=== PATIENT | female | born 1980 | race Caucasian/White ===

== ENCOUNTER 2017-01-17 14:32 | Emergency (ER) | payer MEDICAID ==
[2017-01-17 14:45] VITALS: BP 126/90
--- NOTE | 2017-01-17 14:47 | ER Document Report ---
ED General - General Chief Complaint: Finger Injury Stated Complaint: RIGHT HAND PAIN Mode of Arrival: Ambulatory Information source: Patient Notes: 36-year-old female presents with complaints of left hand fifth digit pain. Patient notes her nailbed ripped off a few days prior and has not been red and painful. Patient denies any fevers or chills nausea vomiting or diarrhea TRAVEL OUTSIDE OF THE [place] IN LAST 30 DAYS: No - HPI Onset: Last week Onset/Duration: Persistent Quality of pain: Achy Severity: Mild Pain Level: 1 Associated symptoms: Other Exacerbated by: Denies Relieved by: Denies Similar symptoms previously: No Recently seen / treated by doctor: No - Related Data Allergies/Adverse Reactions: haloperidol [From Haldol] Allergy (Unknown, Verified 07/24/11 13:39) haloperidol lactate [From Haldol] Allergy (Unknown, Verified 07/24/11 13:39) ibuprofen [Ibuprofen] Allergy (Unknown, Verified 07/24/11 13:39) paliperidone [From Invega] Allergy (Unknown, Verified 07/24/11 13:39) Past Medical History - Social History Smoking Status: Never Smoker Cigarette use (# per day): No Chew tobacco use (# tins/day): No Smoking Education Provided: No Family History: Reviewed & Not Pertinent Neurological Medical History: Reports: Hx Seizures Musculoskeltal Medical History: Reports Hx Arthritis Psychiatric Medical History: Reports: Hx Anxiety, Hx Bipolar Disorder Past Surgical History: Reports: Hx Section, Hx Cholecystectomy, Hx Tubal Ligation - Immunizations Hx Diphtheria, Pertussis, Tetanus Vaccination: No Review of Systems - Review of Systems Notes: REVIEW OF SYSTEMS: CONSTITUTIONAL : Denies fever, chills, or sweats. Denies recent illness. EENT: Denies eye, ear, throat, or mouth pain or symptoms. Denies nasal or sinus congestion or discharge. Denies throat, tongue, or mouth swelling or difficulty swallowing. CARDIOVASCULAR: Denies chest pain. Denies palpitations or racing or irregular heart beat. Denies ankle edema. RESPIRATORY: Denies cough, cold, or chest congestion. Denies shortness of breath, difficulty breathing, or wheezing. GASTROINTESTINAL: Denies abdominal pain or distention. Denies nausea, vomiting , or diarrhea. Denies blood in vomitus, stools, or per rectum. Denies black, tarry stools. Denies constipation. GENITOURINARY: Denies difficulty urinating, painful urination, burning, frequency, blood in urine, or discharge. FEMALE GENITOURINARY: Denies vaginal bleeding, heavy or abnormal periods, irregular periods. Denies vaginal discharge or odor. MUSCULOSKELETAL: Left hand fifth digit pain SKIN: Denies rash, lesions or sores. HEMATOLOGIC : Denies easy bruising or bleeding. LYMPHATIC: Denies swollen, enlarged glands. NEUROLOGICAL: Denies confusion or altered mental status. Denies passing out or loss of consciousness. Denies dizziness or lightheadedness. Denies headache. Denies weakness or paralysis or loss of use of either side. Denies problems with gait or speech. Denies sensory loss, numbness, or tingling. Denies seizures. PSYCHIATRIC: Denies anxiety or stress. Denies depression, suicidal ideation, or homicidal ideation. ALL OTHER SYSTEMS REVIEWED AND NEGATIVE. Dictation was performed using [employer] voice recognition software PHYSICAL EXAMINATION: GENERAL: Well-appearing, well-nourished and in no acute distress. HEAD: Atraumatic, normocephalic. EYES: Pupils equal round and reactive to light, extraocular movements intact, conjunctiva are normal. ENT: Nares patent, oropharynx clear without exudates. Moist mucous membranes. NECK: Normal range of motion, supple without lymphadenopathy LUNGS: Breath sounds clear to auscultation bilaterally and equal. No wheezes rales or rhonchi. HEART: Regular rate and rhythm without murmurs ABDOMEN: Soft, nontender, nondistended abdomen. No guarding, no rebound. No masses appreciated. Female : deferred Musculoskeletal: Normal range of motion, no pitting or edema. No cyanosis. NEUROLOGICAL: Cranial nerves grossly intact. Normal speech, normal gait. Normal sensory, motor exams PSYCH: Normal mood, normal affect. SKIN: Nail missing from the left hand, mild erythema at the cuticle no pus drained small area of cellulitis noted Course - Re-evaluation Re-evalutation: 01/17/17 14:45 Small cellulitic component noted, patient otherwise well-appearing no distress, she'll be started on antibiotics and is stable for discharge After performing a Medical Screening Examination, I estimate there is LOW risk for OPEN FRACTURE, COMPARTMENT SYNDROME, TENDON RUPTURE, ACUTE NEUROVASCULAR INJURY, or RETAINED FOREIGN BODY, thus I consider the discharge disposition reasonable. Also, there is no evidence or peritonitis, sepsis, or toxicity. I have reevaluated this patient multiple times and no significant life threatening changes are noted. The patient and I have discussed the diagnosis and risks, and we agree with discharging home with close follow-up with the understanding that symptoms and presentations can change. We also discussed returning to the Emergency Department immediately if new or worsening symptoms occur. We have discussed the symptoms which are most concerning (e.g., changing or worsening pain, fever, numbness, weakness, cool or painful digits) that necessitate immediate return. Discharge - Discharge Clinical Impression: Cellulitis, finger Qualifiers: Laterality: left Qualified Code(s): L03.012 - Cellulitis of left finger Condition: Stable Disposition: HOME, SELF-CARE Instructions: Cellulitis ([facility]) Additional Instructions: Follow up with your physician tomorrow for further care or return to the ED IMMEDIATELY if symptoms worsen or new concerns occur. If you cannot afford to follow up with your primary care physician a list of low cost clinics have been provided at the end of your discharge papers as well. Prescriptions: Hydrocodone/Acetaminophen [[place] 5-325 mg Tablet] 1 tab PO Q6 #8 tablet Sulfamethoxazole/Trimethoprim [Bactrim Ds Tablet] 2 each PO BID #40 tablet
== END 2017-01-17 14:55 | disposition home or self-care (01) ==
LOC: ER 14:32
DX: L03.012 Cellulitis of left finger (principal); M79.641 Pain in right hand; X58.XXXA Exposure to other specified factors, initial encounter
CPT/HCPCS: 99283

== ENCOUNTER 2017-06-10 20:24 | Emergency (ER) | payer MEDICAID ==
[2017-06-10 20:38] VITALS: BP 134/78
--- NOTE | 2017-06-10 20:50 | ER Document Report ---
ED Medical Screen (RME) - General Chief Complaint: Probable Seizure Stated Complaint: POSSIBLE SEIZURE Time Seen by Provider: 06/10/17 20:48 Mode of Arrival: Wheelchair Information source: Patient TRAVEL OUTSIDE OF THE [place] IN LAST 30 DAYS: No - HPI Patient complains to provider of: Seizures, low back pain Notes: 06/10/17 20:49 Patient is a 36-year-old female presenting to the emergency room complaining of having 3 seizures over the past 3 days, has a history of seizures previously, reports that she sees Dr. Christy the neurologist for this, and that she recently moved from the [facility] and is unable to find her Klonopin and/ or Ativan which she typically takes for her seizures, she is also complaining of some pain and swelling on the right labia consistent with a Bartholin's gland abscess which she has had in the past, patient reports being allergic to all NSAIDs which cause tongue swelling and InVega which causes her eyes to freeze up - Related Data Allergies/Adverse Reactions: haloperidol [From Haldol] Allergy (Unknown, Verified 06/10/17 20:34) haloperidol lactate [From Haldol] Allergy (Unknown, Verified 06/10/17 20:34) ibuprofen [Ibuprofen] Allergy (Unknown, Verified 06/10/17 20:34) paliperidone [From Invega] Allergy (Unknown, Verified 06/10/17 20:34) Past Medical History Neurological Medical History: Reports: Hx Seizures Renal/ Medical History: Denies: Hx Peritoneal Dialysis Musculoskeltal Medical History: Reports Hx Arthritis Psychiatric Medical History: Reports: Hx Anxiety, Hx Bipolar Disorder Past Surgical History: Reports: Hx Section, Hx Cholecystectomy, Hx Tubal Ligation - Immunizations Hx Diphtheria, Pertussis, Tetanus Vaccination: No Physical Exam - Vital signs Vitals: Temp Pulse Resp BP Pulse Ox 99.1 F 97 14 134/78 H 94 06/10/17 20:35 06/10/17 20:35 06/10/17 20:35 06/10/17 20:35 06/10/17 20:35 Course - Vital Signs Vital signs: Temp Pulse Resp BP Pulse Ox 99.1 F 97 14 134/78 H 94 06/10/17 20:35 06/10/17 20:35 06/10/17 20:35 06/10/17 20:35 06/10/17 20:35
--- NOTE | 2017-06-10 22:47 | ER Document Report ---
ED General - General Chief Complaint: Probable Seizure Stated Complaint: POSSIBLE SEIZURE Time Seen by Provider: 06/10/17 20:48 Mode of Arrival: Wheelchair TRAVEL OUTSIDE OF THE [place] IN LAST 30 DAYS: No - HPI Notes: 36-year-old female presents with a multitude of complaints. Her chief complaint to me is back pain. She states he had a seizure and remembers falling landing on her buttocks and now has pain in her left and right lower back and buttock region. She has Flexeril but states that does not help and the only thing that helps his Soma. She also is requesting pain medication. On review of systems she has multiple other complaints which include a Bartholin 's cyst on her right labia she thinks. She has had prior marsupialization. She notes no drainage. No fever. Pain is worse with movement. She is currently on no pain medications she states. No fever. After exam I note some small little areas of folliculitis with minimal surrounding erythema. She states that these have been present off and on for quite some time. She sees Dr. Sanchez is a primary care physician. She also reports she does have seizures and is not worried about that though she has had 3 fairly recently. She states she usually takes Klonopin or Ativan for it but is not worried as she is on Neurontin also for this. She has been out of the Klonopin and Ativan for a while as well. - Related Data Allergies/Adverse Reactions: haloperidol [From Haldol] Allergy (Unknown, Verified 06/10/17 20:34) haloperidol lactate [From Haldol] Allergy (Unknown, Verified 06/10/17 20:34) ibuprofen [Ibuprofen] Allergy (Unknown, Verified 06/10/17 20:34) paliperidone [From Invega] Allergy (Unknown, Verified 06/10/17 20:34) Past Medical History - General Information source: Patient - Social History Smoking Status: Current Every Day Smoker Family History: Reviewed & Not Pertinent Neurological Medical History: Reports: Hx Seizures Renal/ Medical History: Denies: Hx Peritoneal Dialysis Musculoskeltal Medical History: Reports Hx Arthritis Psychiatric Medical History: Reports: Hx Anxiety, Hx Bipolar Disorder Past Surgical History: Reports: Hx Section, Hx Cholecystectomy, Hx Tubal Ligation - Immunizations Hx Diphtheria, Pertussis, Tetanus Vaccination: No Review of Systems - Review of Systems -: Yes All other systems reviewed and negative Physical Exam - Vital signs Vitals: Temp Pulse Resp BP Pulse Ox 99.1 F 97 14 134/78 H 94 06/10/17 20:35 06/10/17 20:35 06/10/17 20:35 06/10/17 20:35 06/10/17 20:35 - Notes Notes: GENERAL: VS as per nursing doc. Well-appearing, appears somewhat sedated and under the influence, well-nourished and in no acute distress. HEAD: Atraumatic, normocephalic. EYES: Pupils equal round and reactive to light, extraocular movements intact, sclera anicteric, no conjunctival injection or discharge. ENT: Nares patent, oropharynx clear without exudates, moist mucous membranes. NECK: Normal range of motion, supple without lymphadenopathy. LUNGS: Breath sounds clear to auscultation bilaterally and equal. Good movement but mild wheezing HEART: Regular rate and rhythm without murmurs. ABDOMEN: Soft, non-tender. BACK: Mild tenderness to palpation in the lower lumbar region paraspinal musculature extending to the SI region bilaterally. : Exam done with PCPAgustina. There is no palpable Bartholin's abscess. There is some tenderness but no drainage noted. EXTREMITIES: Normal range of motion, no calf tenderness, no edema. NEUROLOGICAL: Patient has normal distal strength and sensation, gait is intact. No saddle anesthesia. PSYCH: No evidence of delusions hallucinations suicidal homicidal ideation.. SKIN: Warm, dry, normal turgor, patient has some small furuncles that are scattered over her upper legs. There are no abscesses that are of drainable size. Course - Re-evaluation Re-evalutation: 06/10/17 22:47 Patient's main concern was that I would not prescribe her Soma. I told her I was not comfortable with this medication due to its addictive properties. As this was related to a fall, I recommended labs as well as x-ray. She refused this stating it is just muscle spasm. She understands risks of occult injury. I told her I would prescribe her Zanaflex as apparently all other muscle relaxants do not help. I did specifically ask if she had any addiction issues or if she had any pain medication that she was currently on. She states no. I reviewed the [place] database and it showed she had Suboxone picked up both the sixth seventh and 14th of this month. She states it must have been her that did this. I told her this was an appropriate. Again I was not comfortable providing controlled substances that she was requesting. She will be discharged to follow-up with Dr. Sanchez her primary care doctor. - Vital Signs Vital signs: Temp Pulse Resp BP Pulse Ox 99.1 F 97 14 134/78 H 94 06/10/17 20:35 06/10/17 20:35 06/10/17 20:35 06/10/17 20:35 06/10/17 20:35 Discharge - Discharge Clinical Impression: Back pain, Labial pain, Seizure Condition: Good Disposition: HOME, SELF-CARE Additional Instructions: Please follow-up with your primary care physician. Please instruct her partner that it is an appropriate for her to be picking up your Suboxone and that you are not using it as you told me. Return for emergency or concern. Prescriptions: Tizanidine HCl [Zanaflex] 4 mg PO Q8HP PRN #10 capsule PRN Reason: For Back Pain Sulfamethoxazole/Trimethoprim [Bactrim Ds Tablet] 1 each PO BID #14 tablet
== END 2017-06-10 23:16 | disposition home or self-care (01) ==
LOC: ER 20:24
DX: R56.9 Unspecified convulsions (principal); R10.2 Pelvic and perineal pain; M54.9 Dorsalgia, unspecified; Z79.899 Other long term (current) drug therapy; F17.200 Nicotine dependence, unspecified, uncomplicated
CPT/HCPCS: 99283

== ENCOUNTER 2017-09-11 11:27 | Emergency (ER) | payer MEDICAID ==
[2017-09-11 11:50] VITALS: BP 169/112
--- NOTE | 2017-09-11 11:52 | ER Document Report ---
ED Medical Screen (RME) - General Chief Complaint: Vaginal Pain Stated Complaint: ABCESS Time Seen by Provider: 09/11/17 11:50 Notes: 36-year-old female patient complains of one-week history of painful Bartholin's cyst, and has had URI symptoms for 4 days with cough and hoarse voice. I have greeted and performed a rapid initial assessment of this patient. A comprehensive ED assessment and evaluation of the patient, analysis of test results and completion of the medical decision making process will be conducted by additional ED providers. TRAVEL OUTSIDE OF THE [place] IN LAST 30 DAYS: No - Related Data Allergies/Adverse Reactions: haloperidol [From Haldol] Allergy (Unknown, Verified 09/11/17 11:28) haloperidol lactate [From Haldol] Allergy (Unknown, Verified 09/11/17 11:28) ibuprofen [Ibuprofen] Allergy (Unknown, Verified 09/11/17 11:28) paliperidone [From Invega] Allergy (Unknown, Verified 09/11/17 11:28) Past Medical History Neurological Medical History: Reports: Hx Seizures Renal/ Medical History: Denies: Hx Peritoneal Dialysis Musculoskeltal Medical History: Reports Hx Arthritis Psychiatric Medical History: Reports: Hx Anxiety, Hx Bipolar Disorder Past Surgical History: Reports: Hx Section, Hx Cholecystectomy, Hx Tubal Ligation - Immunizations Hx Diphtheria, Pertussis, Tetanus Vaccination: No Physical Exam - Vital signs Vitals: Temp Pulse Resp BP Pulse Ox 99.2 F 103 H 20 169/112 H 92 09/11/17 11:35 09/11/17 11:35 09/11/17 11:35 09/11/17 11:35 09/11/17 11:35 Course - Vital Signs Vital signs: Temp Pulse Resp BP Pulse Ox 99.2 F 103 H 20 169/112 H 92 09/11/17 11:35 09/11/17 11:35 09/11/17 11:35 09/11/17 11:35 09/11/17 11:35
[2017-09-11] MEDS ORDERED: ALBUTEROL SULFATE 0.083% NEB 2.5 MG/3 ML AMPUL NEB ONE (13:21)
--- NOTE | 2017-09-11 13:21 | ER Document Report ---
ED General - General Chief Complaint: Vaginal Pain Stated Complaint: ABCESS Time Seen by Provider: 09/11/17 11:50 Notes: Patient is a 36-year-old female presents emergency department complaining of Bartholin's cyst within her right labia. Patient states she has been having pressure and discomfort there for about a week and a half without any active draining. States she has been having issues with this for about 2 years. She has had been on the left and had previous surgery in this area. She denies any fever. Otherwise she does admit to nonproductive cough without shortness of breath for the past 4 days. She denies any nasal drainage, sinus congestion. TRAVEL OUTSIDE OF THE [place] IN LAST 30 DAYS: No - Related Data Allergies/Adverse Reactions: haloperidol [From Haldol] Allergy (Unknown, Verified 09/11/17 11:28) haloperidol lactate [From Haldol] Allergy (Unknown, Verified 09/11/17 11:28) ibuprofen [Ibuprofen] Allergy (Unknown, Verified 09/11/17 11:28) paliperidone [From Invega] Allergy (Unknown, Verified 09/11/17 11:28) Past Medical History - Social History Smoking Status: Current Every Day Smoker Frequency of alcohol use: None Drug Abuse: None Family History: Reviewed & Not Pertinent Patient has suicidal ideation: No Patient has homicidal ideation: No Neurological Medical History: Reports: Hx Seizures Renal/ Medical History: Denies: Hx Peritoneal Dialysis Musculoskeltal Medical History: Reports Hx Arthritis Psychiatric Medical History: Reports: Hx Anxiety, Hx Bipolar Disorder Past Surgical History: Reports: Hx Section, Hx Cholecystectomy, Hx Tubal Ligation - Immunizations Hx Diphtheria, Pertussis, Tetanus Vaccination: No Review of Systems - Review of Systems Constitutional: No symptoms reported Cardiovascular: No symptoms reported Respiratory: See HPI Gastrointestinal: No symptoms reported Female Genitourinary: See HPI -: Yes All other systems reviewed and negative Physical Exam - Vital signs Vitals: Temp Pulse Resp BP Pulse Ox 99.2 F 103 H 20 169/112 H 92 09/11/17 11:35 09/11/17 11:35 09/11/17 11:35 09/11/17 11:35 09/11/17 11:35 - Notes Notes: PHYSICAL EXAM GENERAL: Alert, interacts well. HEAD: Normocephalic, atraumatic. EYES: Pupils equal, round, and reactive to light. Extraocular movements intact. ENT: Oral mucosa moist, tongue midline. NECK: Full range of motion. Supple. Trachea midline. LUNGS: Clear to auscultation bilaterally, no wheezes, rales, or rhonchi. No respiratory distress. HEART: Regular rate and rhythm. No murmurs, gallops, or rubs. ABDOMEN: Soft, nondistended, nontender. No guarding, rebound, or rigidity.. Bowel sounds present in all 4 quadrants. My pelvic exam Pelvic: Patient points to the lower right portion of the external genitalia, below or at the lower labia on the right as to where it's very painful and she feels the cyst is located. No eveidnce of current drainage, erythema , induration or cellulitis. Palpation to the area without fluctuance or an area that I think it's reasonable to attempt an I & D Rectal: nontender, sphincter intact. no stool within the rectal vault. Nontender to digital exam EXTREMITIES: Moves all 4 extremities spontaneously. No edema, radial and dorsalis pedis pulses 2/4 bilaterally. No cyanosis. NEUROLOGICAL: Alert and oriented x4. Normal speech. PSYCH: Normal affect, normal mood. SKIN: Warm, dry, normal turgor. No rashes or lesions noted. Course - Re-evaluation Re-evalutation: 09/11/17 13:00 Patient is a 36-year-old female is hemodynamically stable, no acute distress and afebrile. Presentation is not consistent with a Bartholin's cyst inflammation, abscess at this time. Patient states that she was previously evaluated here for this over a year ago by Dr. Chambers, she had significant relief with Keflex at that time. Will continue this treatment at this time patient had relief. Educated her on utilizing warm soaks in the bathtub and to follow-up with [facility]. Regarding her cough. Patient states that she does have a nebulizer and inhaler at home. Otherwise did not have any concerns for pneumonia given patient's not short of breath, no productive cough, benign physical exam findings. Patient is stable for discharge. - Vital Signs Vital signs: Temp Pulse Resp BP Pulse Ox 99.2 F 103 H 20 169/112 H 95 09/11/17 11:35 09/11/17 11:35 09/11/17 11:35 09/11/17 11:35 09/11/17 11:54 Discharge - Discharge Clinical Impression: Vaginal pain, Cough Condition: Good Disposition: HOME, SELF-CARE Additional Instructions: Bartholin Gland Cyst or Abcess The Bartholin glands are located on each side of the entrance to the vagina. These glands secrete lubricating fluid. If a gland becomes plugged, it can create a "Bartholin's cyst." This creates a large bulge on one side of the labia. A cyst is usually not very painful. If a Bartholin's cyst or gland becomes infected, it creates an abscess. This is a painful collection of pus. One side of the labia becomes swollen, red , and painful. It will be very painful to walk or sit. When a Bartholin's cyst causes mild symptoms, it can sometimes be treated with sitz baths and antibiotics. A painful abscess usually needs to be drained ( lanced). If there are signs of infection in the tissues around the abscess, we prescribe antibiotics. Antibiotics are not always necessary for an abscess that' s been drained. If packing has been placed, it's important to follow up as scheduled for removal or replacement of the packing. Return if you have increasing fever, body aches, lightheadedness, or if the swelling and pain is getting worse. CEPHALEXIN: The antibiotic you've been prescribed is a member of the cephalosporin class. This type of antibiotic covers a wide variety of infections, including those of the skin, lungs, and urinary tract. It's useful for staph infections. This antibiotic is slightly similar to the penicillin family. In rare cases , a person who is allergic to penicillin will also be allergic to this medication. If you have had a severe allergic reaction to penicillin, and have not taken this antibiotic since that time, notify your doctor. Antibiotics which cover many germs ("broad spectrum" antibiotics) are more likely to cause diarrhea or "yeast" infections. Women prone to vaginal yeast problems may suffer an attack after taking this antibiotic. In infants, oral thrush (white spots "stuck" on the cheek) or yeast diaper rash may result. See your doctor if these problems occur. Call at once if you develop itching, hives , shortness of breath, or lightheadedness. FOLLOW-UP CARE: Most simple abscesses will not require a follow up visit. If you had packing placed in the abscess, remove it as instructed by the physician. If you have been referred to a physician for follow-up care, call the physicians office for an appointment as you were instructed or within the next two days. If you experience worsening or a significant change in your symptoms, return to the Emergency Department at any time for re-evaluation. I recommend you follow-up with a local [employer] physician to see about having surgery to remove the cyst so it won't form future abscesses. [facility] is the only [facility] group in [facility] at this time and I have provided their contact information elsewhere in your discharge instructions. Prescriptions: Acetaminophen with Codeine [Acetaminophen-Cod #3 Tablet] 1 each PO BID #6 tablet Cephalexin Monohydrate [Keflex 500 mg Capsule] 500 mg PO Q6H 5 Days capsule Referrals: CNOSTANZA STONE MD [Primary Care Provider] - Follow up as needed [facility] [Provider Group] - Follow up in 3-5 days
[2017-09-11] MEDS ORDERED: CEPHALEXIN 500 MG CAPSULE PO ONE (13:44)
== END 2017-09-11 14:11 | disposition home or self-care (01) ==
LOC: ER 11:27
DX: R10.2 Pelvic and perineal pain (principal); R05 Cough; F17.200 Nicotine dependence, unspecified, uncomplicated
CPT/HCPCS: 94640; 99283

== ENCOUNTER 2018-01-15 22:02 | Emergency (ER) | payer MEDICAID ==
--- NOTE | 2018-01-16 00:07 | ER Document Report ---
HPI - HPI Pain Level: 4 Context: Patient is a 37-year-old female presents emergency room with a chief complaint of anxiety. Patient states that she has a history of anxiety and she has been taking Lexapro for about 5 years but recently has been having more acute anxiety attacks since she went to some new is in her family. She admits to anxiety without suicidal or homicidal ideations. Patient states that she has not talked about this with her primary care provider. She admits to shortness of breath associated with these episodes. - REPRODUCTIVE Reproductive: DENIES: : Past Medical History - Social History Smoking Status: Current Every Day Smoker Family History: Reviewed & Not Pertinent Neurological Medical History: Reports: Hx Seizures Renal/ Medical History: Denies: Hx Peritoneal Dialysis Musculoskeltal Medical History: Reports Hx Arthritis Psychiatric Medical History: Reports: Hx Anxiety, Hx Bipolar Disorder Past Surgical History: Reports: Hx Section, Hx Cholecystectomy, Hx Tubal Ligation - Immunizations Hx Diphtheria, Pertussis, Tetanus Vaccination: No Vertical Provider Document - CONSTITUTIONAL Agree With Documented VS: Yes Notes: PHYSICAL EXAM GENERAL: Alert, interacts well. HEAD: Normocephalic, atraumatic. EYES: Pupils equal, round, and reactive to light. Extraocular movements intact. ENT: Oral mucosa moist, tongue midline. NECK: Full range of motion. Supple. Trachea midline. LUNGS: Clear to auscultation bilaterally, no wheezes, rales, or rhonchi. No respiratory distress. HEART: Regular rate and rhythm. No murmurs, gallops, or rubs. ABDOMEN: Soft, nondistended, nontender. No guarding, rebound, or rigidity.. Bowel sounds present in all 4 quadrants. EXTREMITIES: Moves all 4 extremities spontaneously. No edema, radial and dorsalis pedis pulses 2/4 bilaterally. No cyanosis. NEUROLOGICAL: Alert and oriented x4. Normal speech. PSYCH: Normal affect, normal mood. SKIN: Warm, dry, normal turgor. No rashes or lesions noted. - INFECTION CONTROL TRAVEL OUTSIDE OF THE [place] IN LAST 30 DAYS: No Course - Re-evaluation Re-evalutation: 01/16/18 01:00 Patient is a 37-year-old female who is hemodynamically stable, no acute distress and afebrile. EKG ordered in triage without any evidence of cardiac arrhythmia. Patient on exam is able speak in full sentences and normal affect. Discussed with her to follow-up with her primary care office regarding her symptoms and discussed strict return precautions to the ER. At this time patient is not a IVC criteria. - Vital Signs Vital signs: Temp Pulse Resp BP Pulse Ox 98.2 F 81 20 135/77 H 95 01/15/18 22:42 01/15/18 22:42 01/15/18 22:42 01/15/18 22:42 01/15/18 22:42 - Diagnostic Test Radiology reviewed: Image reviewed, Reports reviewed Discharge - Discharge Clinical Impression: Anxiety Condition: Good Disposition: HOME, SELF-CARE Instructions: Anxiety (OM) Prescriptions: Lorazepam [Ativan 1 mg Tablet] 1 mg PO Q4 PRN #15 tab PRN Reason: Referrals: [facility] [Provider Group] - Follow up in 1 week
--- NOTE | 2018-01-16 00:26 | EKG REPORT ---
SEVERITY:- NORMAL ECG - SINUS RHYTHM : Confirmed by: Karen Villanueva 16-Jan-2018 00:26:06
[2018-01-16] MEDS: LORAZEPAM 1 MG TABLET PO ONE (00:37)
--- NOTE | 2018-01-16 01:08 | RADIOLOGY REPORT (SQ) ---
EXAM DESCRIPTION: CHEST 2 VIEWS CLINICAL HISTORY: chest pain, anxiety COMPARISON: None. FINDINGS: Frontal and lateral views of the chest. The cardiomediastinal silhouette has normal size and contour. No consolidation, pneumothorax, or pleural effusion. No displaced rib fractures identified. Upper abdominal soft tissues are unremarkable. IMPRESSION: 1. No acute pulmonary process identified.
[2018-01-16 01:45] VITALS: BP 124/74
== END 2018-01-16 01:45 | disposition home or self-care (01) ==
LOC: ER 22:02
DX: F41.9 Anxiety disorder, unspecified (principal); Z79.899 Other long term (current) drug therapy; R06.02 Shortness of breath; F17.200 Nicotine dependence, unspecified, uncomplicated
CPT/HCPCS: 71046; 93005; 93010; 99283

== ENCOUNTER 2018-05-18 16:08 | Emergency (ER) | payer MEDICAID, OTHER ==
--- NOTE | 2018-05-18 16:31 | ER Document Report ---
ED Medical Screen (RME) - General Chief Complaint: Psych Problem Stated Complaint: PSYCH EVAL Time Seen by Provider: 05/18/18 16:27 TRAVEL OUTSIDE OF THE [place] IN LAST 30 DAYS: No - HPI Notes: 05/18/18 16:30 Increased anxiety and depression - Related Data Allergies/Adverse Reactions: haloperidol [From Haldol] Allergy (Unknown, Verified 05/18/18 16:09) haloperidol lactate [From Haldol] Allergy (Unknown, Verified 05/18/18 16:09) ibuprofen [Ibuprofen] Allergy (Unknown, Verified 05/18/18 16:09) paliperidone [From Invega] Allergy (Unknown, Verified 05/18/18 16:09) hydroxyzine [From Vistaril] Allergy (Verified 05/18/18 16:09) Past Medical History Neurological Medical History: Reports: Hx Seizures Renal/ Medical History: Denies: Hx Peritoneal Dialysis Musculoskeltal Medical History: Reports Hx Arthritis Psychiatric Medical History: Reports: Hx Anxiety, Hx Bipolar Disorder Past Surgical History: Reports: Hx Section, Hx Cholecystectomy, Hx Tubal Ligation - Immunizations Hx Diphtheria, Pertussis, Tetanus Vaccination: No Review of Systems - Review of Systems Neurological/Psychological: Depression, Anxiety Physical Exam - Vital signs Vitals: Temp Pulse Resp BP Pulse Ox 98.8 F 91 24 H 137/83 H 95 05/18/18 16:14 05/18/18 16:14 05/18/18 16:14 05/18/18 16:14 05/18/18 16:14 - Respiratory Respiratory status: No respiratory distress Chest status: Nontender Breath sounds: Normal Chest palpation: Normal - Cardiovascular Rhythm: Regular Heart sounds: Normal auscultation Course - Vital Signs Vital signs: Temp Pulse Resp BP Pulse Ox 98.8 F 91 24 H 137/83 H 95 05/18/18 16:14 05/18/18 16:14 05/18/18 16:14 05/18/18 16:14 05/18/18 16:14
[2018-05-18 17:26] LABS: ABSOLUTE BASOPHILS # (AUTO) 0.1 10^3/uL (0.0-0.2); ABSOLUTE EOSINOPHILS # (AUTO) 0.5 10^3/uL (0.0-0.6); ABSOLUTE LYMPHOCYTES (AUTO) 3.3 10^3/uL (0.5-4.7); ABSOLUTE MONOCYTES (AUTO) 1.1 10^3/uL (0.1-1.4); ABSOLUTE NEUT (AUTO) 8.1 10^3/uL (1.7-8.2); BASOPHILS % (AUTO) 0.9 % (0-2); EOSINOPHILS % (AUTO) 3.7 % (0-6); HEMATOCRIT 42.3 % (36.0-47.0); HEMOGLOBIN 14.1 g/dL (12.0-15.5); LYMPHOCYTES % (AUTO) 25.5 % (13-45); MEAN CORPUSCULAR HEMOGLOBIN 27.6 pg (27.0-33.4); MEAN CORPUSCULAR HGB CONC 33.3 g/dL (32.0-36.0); MEAN CORPUSCULAR VOLUME 83 fl (80-97); PLATELET COUNT 183 10^3/uL (150-450); RED BLOOD COUNT 5.12 10^6/uL (3.72-5.28); RED CELL DISTRIBUTION WIDTH 15.6 % (11.5-14.0); SEGMENTED NEUTROPHILS % (AUTO) 61.9 % (42-78); TOTAL CELLS COUNTED % (AUTO) 100 %; WHITE BLOOD COUNT 13.1 10^3/uL (4.0-10.5)
[2018-05-18 17:54] LABS: ALANINE AMINOTRANSFERASE 21 U/L (9-52); ALBUMIN 3.9 g/dL (3.5-5.0); ALKALINE PHOSPHATASE 89 U/L (38-126); ANION GAP 12 (5-19); ASPARTATE AMINO TRANSFERASE 21 U/L (14-36); BILIRUBIN,DIRECT 0.3 mg/dL (0.0-0.4); BILIRUBIN,TOTAL 0.4 mg/dL (0.2-1.3); BLOOD UREA NITROGEN 10 mg/dL (7-20); CALCIUM 9.6 mg/dL (8.4-10.2); CARBON DIOXIDE 28 mmol/L (22-30); CHLORIDE 101 mmol/L (98-107); GLUCOSE 147 mg/dL (75-110); POTASSIUM 4.3 mmol/L (3.6-5.0); SODIUM 140.5 mmol/L (137-145); TOTAL PROTEIN 7.4 g/dL (6.3-8.2)
[2018-05-18 18:01] LABS: APPEARANCE,URINE CLEAR; BILIRUBIN,URINE NEGATIVE (NEGATIVE); COLOR,URINE YELLOW; GLUCOSE, URINE NEGATIVE (NEGATIVE); KETONES,URINE NEGATIVE (NEGATIVE); LEUKOCYTE ESTERASE,URINE NEGATIVE (NEGATIVE); NITRITE,URINE NEGATIVE (NEGATIVE); PROTEIN,URINE NEGATIVE (NEGATIVE); URINE SPECIFIC GRAVITY 1.008; UROBILINOGEN,URINE NEGATIVE mg/dL (<2.0)
[2018-05-18 18:11] LABS: ACETAMINOPHEN < 10 ug/mL (10-30); ALCOHOL < 10 mg/dL (NONE DETECTED); SALICYLATE < 1.0 mg/dL (2.0-20.0)
--- NOTE | 2018-05-18 18:35 | ER Document Report ---
ED General - General Chief Complaint: Psych Problem Stated Complaint: PSYCH EVAL Time Seen by Provider: 05/18/18 16:27 Mode of Arrival: Ambulatory Information source: Patient Notes: This is a 37-year-old female with a history of depression and anxiety who presents to the emergency room with concerns for "having a nervous breakdown". Patient's sister just . She did try and get into the outpatient psych clinic at [facility] and was turned away she feels like she is root losing control. TRAVEL OUTSIDE OF THE [place] IN LAST 30 DAYS: No - HPI Onset: Last week Onset/Duration: Gradual Quality of pain: No pain Severity: None Associated symptoms: denies: Chest pain, Fever, Shortness of breath Exacerbated by: Denies Relieved by: Denies Similar symptoms previously: Yes Recently seen / treated by doctor: No - Related Data Allergies/Adverse Reactions: haloperidol [From Haldol] Allergy (Unknown, Verified 05/18/18 16:09) haloperidol lactate [From Haldol] Allergy (Unknown, Verified 05/18/18 16:09) ibuprofen [Ibuprofen] Allergy (Unknown, Verified 05/18/18 16:09) paliperidone [From Invega] Allergy (Unknown, Verified 05/18/18 16:09) hydroxyzine [From Vistaril] Allergy (Verified 05/18/18 16:09) Past Medical History - General Information source: Patient - Social History Smoking Status: Current Every Day Smoker Cigarette use (# per day): Yes - Half pack per day Chew tobacco use (# tins/day): No Frequency of alcohol use: None Drug Abuse: None Lives with: Family Family History: Reviewed & Not Pertinent Patient has suicidal ideation: Yes Patient has homicidal ideation: No - Past Medical History Cardiac Medical History: Reports: None Pulmonary Medical History: Reports: None Neurological Medical History: Reports: Hx Seizures Renal/ Medical History: Denies: Hx Peritoneal Dialysis GI Medical History: Reports: None Musculoskeletal Medical History: Reports Hx Arthritis Psychiatric Medical History: Reports: Hx Anxiety, Hx Bipolar Disorder Past Surgical History: Reports: Hx Section, Hx Cholecystectomy, Hx Tubal Ligation - Immunizations Hx Diphtheria, Pertussis, Tetanus Vaccination: No Review of Systems - Review of Systems Constitutional: denies: Chills, Fever EENT: No symptoms reported Cardiovascular: No symptoms reported Respiratory: No symptoms reported Gastrointestinal: No symptoms reported Genitourinary: No symptoms reported Female Genitourinary: No symptoms reported Musculoskeletal: No symptoms reported Skin: No symptoms reported Hematologic/Lymphatic: No symptoms reported Neurological/Psychological: See HPI Physical Exam - Vital signs Vitals: Temp Pulse Resp BP Pulse Ox 98.8 F 91 24 H 137/83 H 95 05/18/18 16:14 05/18/18 16:14 05/18/18 16:14 05/18/18 16:14 05/18/18 16:14 Notes: Physical exam: GENERAL: 37-year-old female, alert and oriented 3, he does appear very anxious. HEAD: Atraumatic, normocephalic. EYES: Pupils equal round and reactive to light, extraocular movements intact, sclera anicteric, conjunctiva are normal. ENT: TMs normal, nares patent, oropharynx clear without exudates. Moist mucous membranes. NECK: Normal range of motion, supple without obvious mass or JVD. LUNGS: Breath sounds clear to auscultation bilaterally and equal. No wheezes rales or rhonchi. HEART: Regular rate and rhythm without murmurs, rubs or gallops. ABDOMEN: Soft, normoactive bowel sounds. No tenderness to palpation. No guarding, no rebound. No masses appreciated. EXTREMITIES: Normal range of motion, no pitting or edema. No clubbing or cyanosis. NEUROLOGICAL: Cranial nerves II through XII grossly intact. Normal speech, moving all extremities. PSYCH: Anxious, depressed. SKIN: Warm, Dry, normal turgor, no rashes or lesions noted. Course - Re-evaluation Re-evalutation: 05/18/18 18:35 Patient is medically stable for psychiatric disposition or discharge. - Vital Signs Vital signs: Temp Pulse Resp BP Pulse Ox 98.8 F 91 24 H 137/83 H 95 05/18/18 16:14 05/18/18 16:14 05/18/18 16:14 05/18/18 16:14 05/18/18 16:14 - Laboratory Result Diagrams: 05/18/18 17:22 05/18/18 17:22 Laboratory results interpreted by me: 05/18/18 05/18/18 05/18/18 16:58 17:22 17:22 WBC 13.1 H RDW 15.6 H Glucose 147 H Urine Blood SMALL H Salicylates < 1.0 L Acetaminophen < 10 L Discharge - Discharge Clinical Impression: Mood disorder NOS Condition: Stable Disposition: PSYCH HOSP/UNIT
[2018-05-18 19:08] LABS: URINE AMPHETAMINES SCREEN NEGATIVE; URINE BARBITURATES SCREEN NEGATIVE; URINE BENZODIAZEPINES SCREEN UNCONFIRMED POSITIVE; URINE COCAINE SCREEN NEGATIVE; URINE MARIJUANA (THC) SCREEN NEGATIVE; URINE METHADONE SCREEN NEGATIVE; URINE PHENCYCLIDINE SCREEN NEGATIVE
[2018-05-18] MEDS ORDERED: ALPRAZOLAM 0.5 MG TABLET PO ONE (19:43)
[2018-05-18] MEDS ORDERED: NICOTINE 21 MG/24 HR PATCH.TD24 TD ONE (20:23)
[2018-05-19] MEDS ORDERED: CLONIDINE HCL 0.2 MG TABLET PO ONE (00:48)
[2018-05-19] MEDS ORDERED: ALPRAZOLAM 0.5 MG TABLET PO PRN (00:58)
[2018-05-19] MEDS ORDERED: TRAZODONE HCL 50 MG TABLET PO SCH (01:00)
--- NOTE | 2018-05-19 08:56 | EKG REPORT ---
SEVERITY:- BORDERLINE ECG - SINUS RHYTHM PROBABLE LEFT ATRIAL ABNORMALITY BORDERLINE T ABNORMALITIES, ANTERIOR LEADS : Confirmed by: Karen Villanueva 19-May-2018 08:56:22
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
[2018-05-19 09:17] VITALS: BP 140/70
[2018-05-19] MEDS ORDERED: CLONIDINE HCL 0.2 MG TABLET PO SCH (10:00)
--- NOTE | 2018-05-19 10:28 | ER Document Report ---
Doctor's Note Notes: 05/19/18 10:26 Patient sleeping comfortably on stretcher, easily awakens, reports that she feels anxious and depressed secondary to the recent passing of her sister, she immediately asked me if she could have a dose of Xanax, I stated the patient that I would not be providing her with any controlled substances today, she argued that this is a medication she takes at home, I explained that unless she could provide me with a current prescription bottle showing she is on this medication I was not going to order it for her, at which point time she told me to call the pharmacy, explained that the pharmacy had been called and confirm that patient has not been on this medication in quite some time, at which point in time patient requested her belongings and her discharge paperwork, patient was given a list of resources to follow-up with on an outpatient basis, and advised to return if symptoms worsen or any additional concerns, patient acknowledges understanding and agreement with this plan Discharge - Discharge Clinical Impression: Bipolar 1 disorder, Anxiety Condition: Stable Disposition: HOME, SELF-CARE Additional Instructions: You have been evaluated by medical and behavioral health teams and have been deemed appropriate for discharge. Is recommended you follow-up with outpatient mental health services to receive Dialectical behavioral therapy (DBT). You have been provided a resource list for local mental health providers. Anxiety The physician feels that some of your health problems are being caused by anxiety. Anxiety affects your health in many ways. Anxiety alone can cause palpitations, sweats, chest pains, abdominal pains, shortness of breath, and headaches. It contributes to ulcer disease, high blood pressure, irritable bowel syndrome, and has been shown to cause flare-ups of many other diseases. Anxiety is not a simple disorder to treat. If the anxiety is due to recent life stresses, you may simply need time to "work through" the changes. If the anxiety is due to an underlying unhappiness with yourself or due to psychiatric disturbance, professional help will be needed. Your physician can refer you for further help if needed. Anti-anxiety medication is occasionally given if the stress is acute or if you are having trouble sleeping. Chronic or frequent use of these medications is not a good idea because the body becomes reliant on it, preventing you from dealing with life's normal stresses. Bipolar Disorder Bipolar disorder is also called manic-depressive disorder. Depression alternates with brain hyperactivity called micheal. Each phase lasts from several days to a few weeks. We don't know exactly what causes bipolar disorder , but it's treatable. During the "manic phase," you may feel elated and energetic. You may have racing thoughts, rapid speech, increased activity, and grandiose ideas. During this time, you may not realize how poor your judgement is. Inappropriate spending, drug abuse, excessive alcohol use, marriage problems, and irresponsible sexual behavior are common during the manic phase. During the "depressive phase," you might feel depressed, guilty, worthless , fatigued, and unable to concentrate. You might have thoughts of suicide. Good treatments are available for bipolar disorder. [place] is a classic drug for bipolar disorder, and is still often useful. If the manic phase is very mild, an antidepressant alone can be prescribed. If the manic phase is very severe, an antipsychotic medicine (such as Haldol) may be needed. The treatment must be matched to your symptoms, so it's important to work closely with your psychiatric care provider. Contact your physician, the hospital emergency center, crisis line, or your counsellor if you are losing control or having self-destructive thoughts. AT ANY TIME, IF YOUR SYMPTOMS CHANGE SIGNIFICANTLY OR WORSEN OR YOU DEVELOP NEW SYMPTOMS, RETURN TO THE EMERGENCY DEPARTMENT IMMEDIATELY FOR RE-EVALUATION. Referrals: [facility] [Outside] - Follow up in 3-5 days [facility] [Outside] - Follow up as needed
== END 2018-05-19 10:54 | disposition home or self-care (01) ==
LOC: ER 16:08
DX: F31.9 Bipolar disorder, unspecified (principal); F41.9 Anxiety disorder, unspecified; F17.210 Nicotine dependence, cigarettes, uncomplicated; Z88.8 Allergy status to other drugs, medicaments and biological substances; Z88.6 Allergy status to analgesic agent
CPT/HCPCS: 93005; 99285; 36415; 80307 ×4; 85025; 80053; 81001; 93010; J3490 ×4

== ENCOUNTER 2019-11-25 00:25 | Observation (INO) | payer OTHER ==
[2019-11-25 01:26] LABS: ABSOLUTE BASOPHILS # (AUTO) 0.1 10^3/uL (0.0-0.2); ABSOLUTE EOSINOPHILS # (AUTO) 0.2 10^3/uL (0.0-0.6); ABSOLUTE LYMPHOCYTES (AUTO) 2.7 10^3/uL (0.5-4.7); ABSOLUTE MONOCYTES (AUTO) 0.8 10^3/uL (0.1-1.4); HEMATOCRIT 43.7 % (36.0-47.0); HEMOGLOBIN 14.9 g/dL (12.0-15.5); LYMPHOCYTES % (AUTO) 22.7 % (13-45); MEAN CORPUSCULAR HGB CONC 34.1 g/dL (32.0-36.0); MEAN CORPUSCULAR VOLUME 85 fl (80-97); MONOCYTES % (AUTO) 6.8 % (3-13); PLATELET COUNT 200 10^3/uL (150-450); RED BLOOD COUNT 5.14 10^6/uL (3.72-5.28); RED CELL DISTRIBUTION WIDTH 14.6 % (11.5-14.0); SEGMENTED NEUTROPHILS % (AUTO) 67.5 % (42-78); TOTAL CELLS COUNTED % (AUTO) 100 %; WHITE BLOOD COUNT 11.8 10^3/uL (4.0-10.5)
[2019-11-25 01:44] LABS: ALBUMIN 3.8 g/dL (3.5-5.0); ALKALINE PHOSPHATASE 109 U/L (38-126); ANION GAP 6 (5-19); ASPARTATE AMINO TRANSFERASE 29 U/L (14-36); BILIRUBIN,DIRECT 0.1 mg/dL (0.0-0.4); BILIRUBIN,TOTAL 0.4 mg/dL (0.2-1.3); BLOOD UREA NITROGEN 5 mg/dL (7-20); CALCIUM 9.2 mg/dL (8.4-10.2); CARBON DIOXIDE 32 mmol/L (22-30); CHLORIDE 97 mmol/L (98-107); GLUCOSE 272 mg/dL (75-110); POTASSIUM 4.4 mmol/L (3.6-5.0)
[2019-11-25] MEDS ORDERED: ACETAMINOPHEN 325 MG TABLET PO ONE (01:58)
[2019-11-25 02:41] LABS: APPEARANCE,URINE CLEAR; BILIRUBIN,URINE NEGATIVE (NEGATIVE); COLOR,URINE STRAW; GLUCOSE, URINE NEGATIVE (NEGATIVE); KETONES,URINE NEGATIVE (NEGATIVE); LEUKOCYTE ESTERASE,URINE NEGATIVE (NEGATIVE); NITRITE,URINE NEGATIVE (NEGATIVE); PROTEIN,URINE NEGATIVE (NEGATIVE); URINE SPECIFIC GRAVITY 1.001; UROBILINOGEN,URINE NEGATIVE mg/dL (<2.0)
[2019-11-25] MEDS ORDERED: NORMAL SALINE 1000 ML 1,000 ML IV ONE (04:04)
[2019-11-25] MEDS ORDERED: DICYCLOMINE HCL 20 MG TABLET PO ONE (04:04)
[2019-11-25] MEDS ORDERED: ONDANSETRON HCL INJ/PF 4 MG/2 ML SDV IV ONE ×2 (04:04→13:45)
--- NOTE | 2019-11-25 04:21 | ER Document Report ---
ED GI/ - General Mode of Arrival: Ambulatory Information source: Patient TRAVEL OUTSIDE OF THE [place] IN LAST 30 DAYS: No - HPI Patient complains to provider of: Abdominal pain, Diarrhea, Vomiting Onset: Yesterday Timing/Duration: Worse Quality of pain: Sharp Pain Level: 5 Location: Other - General abdomen Vaginal bleeding (Compared to normal period): None Associated symptoms: Diarrhea, Nausea, Vomiting. denies: Fever, Urinary hesitancy, Urinary frequency, Urinary retention Exacerbated by: Denies Relieved by: Denies Similar symptoms previously: No Recently seen / treated by doctor: No - Related Data Home Medications: neurontin, trazodone, seroquel, oxybutynin <OLIVIA GARCIA - Last Filed: 11/25/19 08:41> <LUIS ROMERO - Last Filed: 11/25/19 13:12> - General Chief Complaint: Nausea/Vomiting/Diarrhea Stated Complaint: VOMITING/DIARRHEA Time Seen by Provider: 11/25/19 03:40 Notes: Patient presents complaining of nausea vomiting diarrhea since yesterday. Patient complains of generalized abdominal tenderness. Patient reports that appetite has been normal. Patient denies any fever or urinary symptoms. Patient reports vomiting x3 episodes and having diarrhea x3 episodes. (OLIVIA GARCIA) - Related Data Allergies/Adverse Reactions: haloperidol [From Haldol] Allergy (Unknown, Verified 05/18/18 16:09) haloperidol lactate [From Haldol] Allergy (Unknown, Verified 05/18/18 16:09) paliperidone [From Invega] Allergy (Unknown, Verified 05/18/18 16:09) hydroxyzine [From Vistaril] Allergy (Verified 05/18/18 16:09) Past Medical History - General Information source: Patient - Social History Smoking Status: Current Every Day Smoker Chew tobacco use (# tins/day): No Frequency of alcohol use: None Drug Abuse: None Lives with: Family Family History: Reviewed & Not Pertinent Patient has suicidal ideation: No Patient has homicidal ideation: No Neurological Medical History: Reports: Hx Seizures Renal/ Medical History: Denies: Hx Peritoneal Dialysis Musculoskeletal Medical History: Reports Hx Arthritis Psychiatric Medical History: Reports: Hx Anxiety, Hx Bipolar Disorder Past Surgical History: Reports: Hx Section, Hx Cholecystectomy, Hx Tubal Ligation - Immunizations Hx Diphtheria, Pertussis, Tetanus Vaccination: No <OLIVIA GARCIA - Last Filed: 11/25/19 08:41> Review of Systems - Review of Systems Constitutional: No symptoms reported. denies: Fever, Recent illness EENT: No symptoms reported Cardiovascular: No symptoms reported Respiratory: No symptoms reported Gastrointestinal: Abdominal pain, Diarrhea, Nausea, Vomiting Genitourinary: No symptoms reported. denies: Dysuria Female Genitourinary: No symptoms reported Musculoskeletal: No symptoms reported Skin: No symptoms reported Hematologic/Lymphatic: No symptoms reported Neurological/Psychological: No symptoms reported <OLIVIA GARCIA - Last Filed: 11/25/19 08:41> Physical Exam - General General appearance: Appears well, Alert In distress: None - HEENT Head: Normocephalic, Atraumatic Eyes: Normal Conjunctiva: Normal Nasal: Normal Mouth/Lips: Normal Mucous membranes: Normal Neck: Normal, Supple. No: Lymphadenopathy - Respiratory Respiratory status: No respiratory distress Chest status: Nontender Breath sounds: Normal Chest palpation: Normal - Cardiovascular Rhythm: Regular Heart sounds: S1 appreciated, S2 appreciated - Abdominal Inspection: Morbidly Obese Distension: No distension Bowel sounds: Normal Tenderness: Tender - Diffuse abdominal tenderness, abdomen soft - Back Back: Normal, Nontender. No: CVA tenderness - Extremities General upper extremity: Normal inspection, Normal ROM General lower extremity: Normal inspection, Normal ROM - Neurological Neuro grossly intact: Yes Cognition: Normal Dendron Coma Scale Eye Opening: Spontaneous Dendron Coma Scale Verbal: Oriented Dendron Coma Scale Motor: Obeys Commands Efrain Coma Scale Total: 15 - Psychological Associated symptoms: Normal affect, Normal mood - Skin Skin Temperature: Warm Skin Moisture: Dry Skin Color: Normal <OLIVIA GARCIA - Last Filed: 11/25/19 08:41> - Vital signs Vitals: Temp Pulse Resp BP Pulse Ox 98.4 F 65 16 136/81 H 98 11/25/19 00:39 11/25/19 00:39 11/25/19 00:39 11/25/19 00:39 11/25/19 00:39 Course - Laboratory Result Diagrams: 11/25/19 01:13 11/25/19 01:13 - Diagnostic Test Radiology reviewed: Reports reviewed <OLIVIA GARCIA - Last Filed: 11/25/19 08:41> - Laboratory Result Diagrams: 11/25/19 01:13 11/25/19 01:13 <LUIS ROMERO R - Last Filed: 11/25/19 13:12> - Re-evaluation Re-evalutation: 11/25/19 08:[address] Call placed to surgeon Dr[address] Goss who agrees to evaluate patient. Bedside rep ort and handoff given to ADOLPH Verdugo (OLIVIA GARCIA) 11/25/19 12:[address] Goss who states he will be seeing pt soon. 11/25/19 13:00 Dr. Goss evaluated pt and states recommend admission to medical service for bowel rest and IV fluids. States will see her tomorrow. Most likely secondary to gastroenteritis. 11/25/19 13:[address] Guerra who states it will go to [facility]. (LUIS ROMERO) - Vital Signs Vital signs: Temp Pulse Resp BP Pulse Ox 98.4 F 74 19 143/87 H 94 11/25/19 03:22 11/25/19 03:22 11/25/19 03:22 11/25/19 03:22 11/25/19 03:22 - Laboratory Laboratory results interpreted by me: 11/25/19 11/25/19 11/25/19 01:13 01:13 01:13 WBC 11.8 H RDW 14.6 H Sodium 135.3 L Chloride 97 L Carbon Dioxide 32 H BUN 5 L Glucose 272 H Hemoglobin A1c % 9.0 H 11/25/19 08:22 Labs- Entire Visit 11/25/19 11/25/19 11/25/19 01:13 01:13 01:13 WBC 11.8 H RBC 5.14 Hgb 14.9 Hct 43.7 MCV 85 MCH 29.0 MCHC 34.1 RDW 14.6 H Plt Count 200 Lymph % (Auto) 22.7 [place] % (Auto) 6.8 Eos % (Auto) 2.0 Baso % (Auto) 1.0 Absolute Neuts (auto) 8.0 Absolute Lymphs (auto) 2.7 Absolute Monos (auto) 0.8 Absolute Eos (auto) 0.2 Absolute Basos (auto) 0.1 Seg Neutrophils % 67.5 Sodium 135.3 L Potassium 4.4 Chloride 97 L Carbon Dioxide 32 H Anion Gap 6 BUN 5 L Creatinine 0.60 Est GFR ( Amer) > 60 Est GFR (MDRD) Non-Af > 60 Glucose 272 H Hemoglobin A1c % 9.0 H Calcium 9.2 Total Bilirubin 0.4 Direct Bilirubin 0.1 Neonat Total Bilirubin Not Reportable Neonat Direct Bilirubin Not Reportable Neonat Indirect Bili Not Reportable AST 29 ALT 20 Alkaline Phosphatase 109 Total Protein 7.0 Albumin 3.8 Serum HCG, Qual Urine Color Urine Appearance Urine pH Ur Specific [place] Urine Protein Urine Glucose (UA) Urine Ketones Urine Blood Urine Nitrite Urine Bilirubin Urine Urobilinogen Ur Leukocyte Esterase Urine Bacteria (Auto) Squamous Epi Cells Auto Urine Ascorbic Acid 11/25/19 11/25/19 01:13 02:11 WBC RBC Hgb Hct MCV MCH MCHC RDW Plt Count Lymph % (Auto) [place] % (Auto) Eos % (Auto) Baso % (Auto) Absolute Neuts (auto) Absolute Lymphs (auto) Absolute Monos (auto) Absolute Eos (auto) Absolute Basos (auto) Seg Neutrophils % Sodium Potassium Chloride Carbon Dioxide Anion Gap BUN Creatinine Est GFR ( Amer) Est GFR (MDRD) Non-Af Glucose Hemoglobin A1c % Calcium Total Bilirubin Direct Bilirubin Neonat Total Bilirubin Neonat Direct Bilirubin Neonat Indirect Bili AST ALT Alkaline Phosphatase Total Protein Albumin Serum HCG, Qual NEGATIVE Urine Color STRAW Urine Appearance CLEAR Urine pH 7.0 Ur Specific [place] 1.001 Urine Protein NEGATIVE Urine Glucose (UA) NEGATIVE Urine Ketones NEGATIVE Urine Blood NEGATIVE Urine Nitrite NEGATIVE Urine Bilirubin NEGATIVE Urine Urobilinogen NEGATIVE Ur Leukocyte Esterase NEGATIVE Urine Bacteria (Auto) TRACE Squamous Epi Cells Auto 1 Urine Ascorbic Acid NEGATIVE (OLIVIA GARCIA) Discharge <OLIVIA GARCIA - Last Filed: 11/25/19 08:41> - Discharge Admitting Provider: Mari (Hospitalist) - [facility] [place] Unit Admitted: Medical Floor <LUIS ROMERO - Last Filed: 11/25/19 13:12> - Discharge Clinical Impression: Jejunitis, Nausea, vomiting, and diarrhea Abdominal pain Qualifiers: Abdominal location: unspecified location Qualified Code(s): R10.9 - Unspecified abdominal pain Condition: Stable Disposition: ADMITTED OBSERVATION
[2019-11-25] MEDS ORDERED: FENTANYL CITRATE INJ/PF 100 MCG/2 ML AMPUL IV ONE (05:19)
--- NOTE | 2019-11-25 07:54 | RADIOLOGY REPORT (SQ) ---
EXAM DESCRIPTION: CT ABDOMEN PELVIS WITH IV CONTRAST COMPLETED DATE/TME: 11/25/2019 06:05 CLINICAL HISTORY: 39 years Female, abd pain Comparison: None. Technique: IV contrast. Coronal and sagittal reformat. This exam was performed according to our departmental dose-optimization program, which includes automated exposure control, adjustment of the mA and/or kV according to patient size and/or use of iterative reconstruction technique. [facility]: Dose Right [facility]: CareDose [facility]: Dose Right [facility]: Teradose 4D [facility]: SafeBoot LIMITATIONS: None Findings: 3.4 cm diameter dilation of the jejunum with air-fluid levels. Transition zone may be an area mild diffuse jejunal bowel wall thickening/jejunitis at the left paracentral abdomen, image 49, series 3. Differential diagnosis includes ileus and low-grade obstruction. Cholecystectomy. Hepatic steatosis. Atelectasis/scar. L4 and L3 limbus vertebral bodies. Degenerative disc disease. 0.3 cm degenerative L5 retrolisthesis. Mild bilateral L5 foraminal stenoses. No ascites. No pneumoperitoneum. No evidence of appendicitis. Likely normal appendix partially discerned. No hydronephrosis or hydroureter. No renal/ureteral stone. No evidence of abdominal aortic aneurysm. Inferior thorax, pancreas, spleen, adrenals, renal system, pelvic organs, lymphatics, vasculature, and musculoskeleton appear otherwise unremarkable. IMPRESSION: 3.4 cm diameter dilation of the jejunum with air-fluid levels. Differential diagnosis includes enteritis/ileus and low-grade obstruction.Transition zone may be an area mild diffuse jejunal bowel wall thickening/jejunitis at the left paracentral abdomen, image 49, series 3.
[2019-11-25] MEDS ORDERED: MORPHINE SULFATE 10 MG/ML INJ IV ONE ×2 (11:42→13:09)
[2019-11-25] MEDS ORDERED: NICOTINE 21 MG/24 HR PATCH.TD24 TD ONE (13:09)
--- NOTE | 2019-11-25 13:26 | PDOC CONSULTATION ---
Consultation Consult Date: 11/25/19 Provider Consulted: MIMI RUSSO Consult reason:: Jejunitis noted on CT scan History of Present Illness History of Present Illness: MARGO MORALES is a 39 year old female with history of high blood pressure, anxiety and depression complaining of nausea vomiting and diarrhea after eating burger and fries 2 days ago. Developed abdominal pains yesterday and continued to have diarrhea and nausea and vomiting the whole day. Came to ED last night where CT scan of the abdomen revealed jejunitis/ileus. Patient denies any fever though times feels having chills. She was noted also to have an A1c of 9 with a blood sugar of 277 indicating new onset diabetes mellitus. She denies any bowel movement or flatus today. She still complaining of upper abdominal pains with appears to be persistent. She also has some nausea but no vomiting today. She claims she has chronic feeling of nausea Past Medical History Cardiac Medical History: Reports: Hypertension Neurological Medical History: Reports: Seizures Musculoskeltal Medical History: Reports: Arthritis Psychiatric Medical History: Reports: Bipolar Disorder Past Surgical History Past Surgical History: Reports: Section, Cholecystectomy, Tubal Ligation Social History Lives with: Family Smoking Status: Current Every Day Smoker Cigarettes Packs Per Day: 1 Electronic Cigarette use?: No Frequency of Alcohol Use: Rare Family History Family History: Reviewed & Not Pertinent Parental Family History Reviewed: Yes - Father had coronary artery bypass and mother has bronchitis in their 70s Children Family History Reviewed: No Sibling(s) Family History Reviewed.: No Medication/Allergy Home Medications: Albuterol Sulfate [Proair Hfa Inhalation Aerosol 8.5 gm Mdi] 2 puff IH Q6HP PRN 11/25/19 Ergocalciferol (Vitamin D2) [Vitamin D2] 1 cap PO .QWEEKLY 11/25/19 Esomeprazole Magnesium [Nexium] 20 mg PO [id number] 11/25/19 Famotidine [Pepcid 20 mg Tablet] 20 mg PO BID 11/25/19 Fluticasone Propionate [Flonase Nasal Kendrick 50 Mcg/Kendrick 16 gm] 1 spray NAREB DAILY 11/25/19 Gabapentin 600 mg PO Q8 11/25/19 Lurasidone HCl [Latuda] 80 mg PO QAM 11/25/19 Metformin HCl 1,000 mg PO BIDBS 03/01/20 Oxybutynin Chloride [Ditropan 5 Mg Tablet] 5 mg PO Q12 11/25/19 Promethazine HCl [Phenergan 25 mg Tablet] 25 mg PO Q8HP PRN MDD 150 mg 11/25/19 Propranolol HCl [Inderal 20 mg Tablet] 20 mg PO Q12 11/25/19 Quetiapine Fumarate 300 mg PO QHS 11/25/19 Trazodone HCl 200 mg PO QHS 11/25/19 Allergies/Adverse Reactions: haloperidol [From Haldol] Allergy (Unknown, Verified 05/18/18 16:09) haloperidol lactate [From Haldol] Allergy (Unknown, Verified 05/18/18 16:09) paliperidone [From Invega] Allergy (Unknown, Verified 05/18/18 16:09) hydroxyzine [From Vistaril] Allergy (Verified 05/18/18 16:09) Review of Systems Constitutional: PRESENT: as per HPI Gastrointestinal: PRESENT: abdominal pain, diarrhea Genitourinary: PRESENT: other - No dysuria Psychiatric: PRESENT: anxiety Physical Exam Vital Signs: Temp Pulse Resp BP Pulse Ox 98.4 F 74 19 143/87 H 94 11/25/19 03:22 11/25/19 03:22 11/25/19 03:22 11/25/19 03:22 11/25/19 03:22 Intake & Output 11/24/19 11/25/19 11/26/19 06:59 06:59 06:59 Intake Total 1000 Balance 1000 Weight 134.09 kg General appearance: PRESENT: mild distress, obese Head exam: PRESENT: atraumatic Eye exam: PRESENT: conjunctiva pink Mouth exam: PRESENT: moist Neck exam: PRESENT: full ROM Respiratory exam: PRESENT: clear to auscultation marlyn Cardiovascular exam: PRESENT: RRR Pulses: PRESENT: normal radial pulses GI/Abdominal exam: PRESENT: soft, tenderness - Upper abdomen and towards the left flank Rectal exam: PRESENT: deferred Extremities exam: PRESENT: full ROM Musculoskeletal exam: PRESENT: full ROM Neurological exam: PRESENT: alert, oriented to person, oriented to place, oriented to time, oriented to situation Psychiatric exam: PRESENT: appropriate affect Skin exam: PRESENT: normal color, warm Results Laboratory Results: 11/25/19 01:13 11/25/19 01:13 11/25/19 11/25/19 11/25/19 01:13 01:13 01:13 WBC 11.8 H RBC 5.14 Hgb 14.9 Hct 43.7 MCV 85 MCH 29.0 MCHC 34.1 RDW 14.6 H Plt Count 200 Seg Neutrophils % 67.5 Sodium 135.3 L Potassium 4.4 Chloride 97 L Carbon Dioxide 32 H Anion Gap 6 BUN 5 L Creatinine 0.60 Est GFR ( Amer) > 60 Glucose 272 H Calcium 9.2 Total Bilirubin 0.4 AST 29 Alkaline Phosphatase 109 Total Protein 7.0 Albumin 3.8 Serum HCG, Qual NEGATIVE Urine Color Urine Appearance Urine pH Ur Specific [place] Urine Protein Urine Glucose (UA) Urine Ketones Urine Blood Urine Nitrite Ur Leukocyte Esterase 11/25/19 02:11 WBC RBC Hgb Hct MCV MCH MCHC RDW Plt Count Seg Neutrophils % Sodium Potassium Chloride Carbon Dioxide Anion Gap BUN Creatinine Est GFR ( Amer) Glucose Calcium Total Bilirubin AST Alkaline Phosphatase Total Protein Albumin Serum HCG, Qual Urine Color STRAW Urine Appearance CLEAR Urine pH 7.0 Ur Specific [place] 1.001 Urine Protein NEGATIVE Urine Glucose (UA) NEGATIVE Urine Ketones NEGATIVE Urine Blood NEGATIVE Urine Nitrite NEGATIVE Ur Leukocyte Esterase NEGATIVE Impressions: Abdomen/Pelvis CT 11/25/19 06:05 IMPRESSION: 3.4 cm diameter dilation of the jejunum with air-fluid levels. Differential diagnosis includes enteritis/ileus and low-grade obstruction.Transition zone may be an area mild diffuse jejunal bowel wall thickening/jejunitis at the left paracentral abdomen, image 49, series 3. Assessment & Plan - Diagnosis (1) Abdominal pain Qualifiers: Abdominal location: unspecified location Qualified Code(s): R10.9 - Unspecified abdominal pain Is this a current diagnosis for this admission?: Yes (2) Jejunitis Is this a current diagnosis for this admission?: Yes (3) Nausea, vomiting, and diarrhea Is this a current diagnosis for this admission?: Yes - Time Time Spent: 30 to 50 Minutes - Inpatient Certification Medical Necessity: Need For IV Fluids, Risk of Complication if Not Cared For in Hospital - Plan Summary Plan Summary: This is a 39-year-old female with nausea vomiting and diarrhea diarrhea for the past 48 hours associated with upper abdominal pains. She has a history of anxiety, depression and high blood pressure. CT scan of the abdomen showed jejunitis/ileus. Her white count slightly elevated and her blood sugar is 277 with hemoglobin A1c of 9 indicating new onset of diabetes mellitus. Her abdomen is soft with tenderness in the upper abdomen and towards the left flank. Impression: Acute gastroenteritis with jejunitis New onset of diabetes mellitus. No surgical abdomen at this time Recommendations: Placed on bowel rest tonight. Hydrate Treat elevated blood sugar We will follow the patient with medicine
[2019-11-25] MEDS: NORMAL SALINE 1000 ML 1,000 ML IV PRN ×2 (13:28→13:40)
[2019-11-25] MEDS ORDERED: ACETAMINOPHEN 325 MG TABLET PO PRN (13:49)
[2019-11-25] MEDS ORDERED: NORMAL SALINE 1000 ML 1,000 ML IV PRN (13:49)
[2019-11-25] MEDS ORDERED: ONDANSETRON HCL INJ/PF 4 MG/2 ML SDV IV PRN (13:49)
[2019-11-25] MEDS ORDERED: DEXTROSE 40% GEL 15 GM TUBE PO PRN ×2 (13:49)
[2019-11-25] MEDS ORDERED: MAG HYDROX/AL HYDROX/SIMETH SUSP 30 ML UDCUP PO PRN (13:49)
[2019-11-25] MEDS ORDERED: ALBUTEROL SULFATE 0.083% NEB 2.5 MG/3 ML AMPUL NEB PRN (13:49)
[2019-11-25] MEDS ORDERED: DEXTROSE 50%-WATER 25 GM/50 ML DISP.SYRIN IV PRN ×2 (13:49)
[2019-11-25] MEDS ORDERED: PROMETHAZINE HCL INJ 25 MG/1 ML VIAL IV PRN (13:49)
[2019-11-25] MEDS ORDERED: GLUCAGON,HUMAN RECOMB 1 MG INJ IM PRN (13:49)
[2019-11-25] MEDS ORDERED: DICYCLOMINE HCL 20 MG TABLET PO PRN (13:53)
[2019-11-25] MEDS ORDERED: KETOROLAC TROMETHAMINE INJ/PF 30 MG/1 ML SDV IV PRN (13:53)
[2019-11-25] MEDS ORDERED: HEPARIN SOD (PORCINE) 5,000 UNIT/ML 1 ML VIAL SUBCUT SCH (14:00)
--- NOTE | 2019-11-25 14:21 | PDOC H&P ---
History of Present Illness Admission Date/PCP: 11/25/19 13:32 Patient complains of: n/v/d, abd pain History of Present Illness: MARGO MORALES is a 39 year old female with a past medical history of HTN, uncontrolled DM, morbid obesity, seizure disorder, panic disorder, bipolar disorder, and tobacco dependence who presented to the emergency department with a complaint of n/v/d begining three days ago and epigastric pain begining yesterday which prompted her to seek care. She has not had any episodes of vomiting or diarrhea today, but does report continued abdominal discomfort. Evaluation in the ED reveals HTN but otherwise nml vital signs, mild peter kocytosis (WBC 11.8), elevated bicarb on chemistry, nml urinalysis and abdominal CT suggesting enteritis vs ileus. Surgery was consulted; recommends bowel rest and hydration. She is referred to the hospitalist services for admission and management of the above stated complaints and findings. Past Medical History Cardiac Medical History: Reports: Hypertension Pulmonary Medical History: Reports: None EENT Medical History: Reports: None Neurological Medical History: Reports: Seizures Endocrine Medical History: Reports: Diabetes Mellitus Type 2, Obesity Renal/ Medical History: Reports: None Malignancy Medical History: Reports: None GI Medical History: Reports: None Musculoskeltal Medical History: Reports: Arthritis Skin Medical History: Reports: None Psychiatric Medical History: Reports: Bipolar Disorder, Depression, General Anxiety Disorder, Tobacco Dependency Traumatic Medical History: Reports: None Hematology: Reports: None Infectious Medical History: Reports: None Past Surgical History Past Surgical History: Reports: Section, Cholecystectomy, Tubal Ligation Social History Information Source: Patient Lives with: Family Smoking Status: Current Every Day Smoker Cigarettes Packs Per Day: 1 Electronic Cigarette use?: No Frequency of Alcohol Use: Rare Hx Recreational Drug Use: No Hx Prescription Drug Abuse: No - Advance Directive Resuscitation Status: Full Code Family History Family History: Reviewed & Not Pertinent Parental Family History Reviewed: Yes Children Family History Reviewed: Yes Sibling(s) Family History Reviewed.: Yes Medication/Allergy Home Medications: Albuterol Sulfate [Proair Hfa Inhalation Aerosol 8.5 gm Mdi] 2 puff IH Q6HP PRN 11/25/19 Ergocalciferol (Vitamin D2) [Vitamin D2] 1 cap PO TU@1000 11/25/19 Esomeprazole Magnesium [Nexium] 20 mg PO ACBRKFST 11/25/19 Famotidine [Pepcid 20 mg Tablet] 20 mg PO BID 11/25/19 Fluticasone Propionate [Flonase Nasal Atkinson 50 Mcg/Atkinson 16 gm] 1 spray NAREB DAILY 11/25/19 Gabapentin 600 mg PO Q8 11/25/19 Lurasidone HCl [Latuda] 80 mg PO QAM 11/25/19 Metformin HCl 1,000 mg PO BIDBS 11/25/19 Oxybutynin Chloride [Ditropan 5 Mg Tablet] 5 mg PO Q12 11/25/19 Promethazine HCl [Phenergan 25 mg Tablet] 25 mg PO Q8HP PRN MDD 150 mg 11/25/19 Propranolol HCl [Inderal 20 mg Tablet] 20 mg PO Q12 11/25/19 Quetiapine Fumarate 300 mg PO QHS 11/25/19 Trazodone HCl 200 mg PO QHS 11/25/19 Allergies/Adverse Reactions: haloperidol [From Haldol] Allergy (Unknown, Verified 05/18/18 16:09) haloperidol lactate [From Haldol] Allergy (Unknown, Verified 05/18/18 16:09) paliperidone [From Invega] Allergy (Unknown, Verified 05/18/18 16:09) hydroxyzine [From Vistaril] Allergy (Verified 05/18/18 16:09) Review of Systems Constitutional: ABSENT: chills, fever(s), headache(s), weight gain, weight loss Eyes: ABSENT: visual disturbances Ears: ABSENT: hearing changes Cardiovascular: ABSENT: chest pain, dyspnea on exertion, edema, orthropnea, p alpitations Respiratory: ABSENT: cough, hemoptysis Gastrointestinal: PRESENT: abdominal pain, diarrhea, nausea, vomiting. ABSENT: constipation, hematemesis, hematochezia Genitourinary: ABSENT: dysuria, hematuria Musculoskeletal: ABSENT: joint swelling Integumentary: ABSENT: rash, wounds Neurological: ABSENT: abnormal gait, abnormal speech, confusion, dizziness, focal weakness, syncope Psychiatric: ABSENT: anxiety, depression, homidical ideation, suicidal ideation Endocrine: ABSENT: cold intolerance, heat intolerance, polydipsia, polyuria Hematologic/Lymphatic: ABSENT: easy bleeding, easy bruising Physical Exam Vital Signs: Temp Pulse Resp BP Pulse Ox 98.4 F 62 20 130/85 H 93 11/25/19 03:22 11/25/19 13:21 11/25/19 13:21 11/25/19 13:21 11/25/19 13:21 Intake & Output 11/24/19 11/25/19 11/26/19 06:59 06:59 06:59 Intake Total 1000 200 Balance 1000 200 Weight 134.09 kg General appearance: PRESENT: no acute distress, disheveled, morbidly obese, well-developed, well-nourished Head exam: PRESENT: atraumatic, normocephalic Eye exam: PRESENT: conjunctiva pink, EOMI, PERRLA. ABSENT: scleral icterus Mouth exam: PRESENT: moist, tongue midline Teeth exam: PRESENT: poor dentation Respiratory exam: PRESENT: clear to auscultation marlyn, symmetrical, unlabored. ABSENT: rales, rhonchi, wheezes Cardiovascular exam: PRESENT: RRR, +S1, +S2. ABSENT: diastolic murmur, rubs, systolic murmur Pulses: PRESENT: normal dorsalis pedis pul Vascular exam: PRESENT: normal capillary refill GI/Abdominal exam: PRESENT: normal bowel sounds, soft, tenderness - epigastric, other - exam limited secondary to body habitus. ABSENT: distended, guarding, rebound Rectal exam: PRESENT: deferred Extremities exam: PRESENT: full ROM. ABSENT: calf tenderness, clubbing, pedal edema Musculoskeletal exam: PRESENT: ambulatory Neurological exam: PRESENT: alert, awake, oriented to person, oriented to place, oriented to time, oriented to situation, CN II-XII grossly intact. ABSENT: motor sensory deficit Psychiatric exam: PRESENT: appropriate affect, normal mood. ABSENT: homicidal ideation, suicidal ideation Skin exam: PRESENT: dry, intact, warm. ABSENT: cyanosis, rash Results Laboratory Results: 11/25/19 01:13 11/25/19 01:13 11/25/19 11/25/19 11/25/19 01:13 01:13 01:13 WBC 11.8 H RBC 5.14 Hgb 14.9 Hct 43.7 MCV 85 MCH 29.0 MCHC 34.1 RDW 14.6 H Plt Count 200 Seg Neutrophils % 67.5 Sodium 135.3 L Potassium 4.4 Chloride 97 L Carbon Dioxide 32 H Anion Gap 6 BUN 5 L Creatinine 0.60 Est GFR ( Amer) > 60 Glucose 272 H Calcium 9.2 Total Bilirubin 0.4 AST 29 Alkaline Phosphatase 109 Total Protein 7.0 Albumin 3.8 Serum HCG, Qual NEGATIVE Urine Color Urine Appearance Urine pH Ur Specific Wendel Urine Protein Urine Glucose (UA) Urine Ketones Urine Blood Urine Nitrite Ur Leukocyte Esterase 11/25/19 02:11 WBC RBC Hgb Hct MCV MCH MCHC RDW Plt Count Seg Neutrophils % Sodium Potassium Chloride Carbon Dioxide Anion Gap BUN Creatinine Est GFR ( Amer) Glucose Calcium Total Bilirubin AST Alkaline Phosphatase Total Protein Albumin Serum HCG, Qual Urine Color STRAW Urine Appearance CLEAR Urine pH 7.0 Ur Specific Wendel 1.001 Urine Protein NEGATIVE Urine Glucose (UA) NEGATIVE Urine Ketones NEGATIVE Urine Blood NEGATIVE Urine Nitrite NEGATIVE Ur Leukocyte Esterase NEGATIVE Impressions: Abdomen/Pelvis CT 11/25/19 06:05 IMPRESSION: 3.4 cm diameter dilation of the jejunum with air-fluid levels. Differential diagnosis includes enteritis/ileus and low-grade obstruction.Transition zone may be an area mild diffuse jejunal bowel wall thickening/jejunitis at the left paracentral abdomen, image 49, series 3. Assessment and Plan - Diagnosis (1) Gastritis Qualifiers: Gastritis type: unspecified gastritis Chronicity: acute Gastritis bleeding: without bleeding Qualified Code(s): K29.00 - Acute gastritis without bleeding Is this a current diagnosis for this admission?: Yes Plan: Likely viral. Patient reports initial nausea, vomiting, diarrhea 2-3 days ago; no episodes today. Followed by epigastric pain beginning yesterday. WBC 11.8 Afebrile. Pt is admitted to the medical floor. Supportive IVF. Antiemetics as needed. Bentyl or Toradol as needed. Avoid narcotics (r/t jejunitis vs ileus and patient hx of substance abuse). Clear liquid diet. (2) Jejunitis Is this a current diagnosis for this admission?: Yes Plan: Supportive IVF. Antiemetics as needed. Bentyl or Toradol as needed. Avoid narcotics (r/t jejunitis vs ileus and patient hx of substance abuse). Clear liquid diet. Surgery is consulted. (3) HTN (hypertension) Qualifiers: Hypertension type: essential hypertension Qualified Code(s): I10 - Essential (primary) hypertension Is this a current diagnosis for this admission?: Yes Plan: Continue home dose propanolol. Advance to cardiac diet when appropriate. (4) Bipolar disorder Is this a current diagnosis for this admission?: Yes Plan: Continue home medication regiment. (5) Tobacco dependence Is this a current diagnosis for this admission?: Yes Plan: Smoking cessation is encouraged; nicotine replacement therapies are provided. Per nursing; patient has attempted to go outside multiple times to smoke with PIV in place. Education about [facility] nonsmoking policy. (6) Abdominal pain Qualifiers: Abdominal location: unspecified location Qualified Code(s): R10.9 - Unspecified abdominal pain Is this a current diagnosis for this admission?: Yes Plan: Secondary to #1&2; evaluation and management as above. (7) Nausea, vomiting, and diarrhea Is this a current diagnosis for this admission?: Yes Plan: Secondary to #1&2; evaluation and management as above. (8) Diabetes type 2, uncontrolled Qualifiers: Glycemic state: with hyperglycemia Qualified Code(s): E11.65 - Type 2 diabetes mellitus with hyperglycemia Is this a current diagnosis for this admission?: Yes Plan: A1c 9.0 Hold metformin while admitted. Accu-Cheks before meals and at bedtime with Humalog for sliding scale coverage. Hypoglycemia protocol in place. - Time Time Spent with patient: 35 or more minutes Medications reviewed and adjusted accordingly: Yes Anticipated discharge: Home Within: within 24 hours
[2019-11-25 14:27] LABS: URINE AMPHETAMINES SCREEN NEGATIVE; URINE BARBITURATES SCREEN NEGATIVE; URINE BENZODIAZEPINES SCREEN NEGATIVE; URINE COCAINE SCREEN NEGATIVE; URINE MARIJUANA (THC) SCREEN NEGATIVE; URINE PHENCYCLIDINE SCREEN NEGATIVE
[2019-11-25 14:36] LABS: URINE METHADONE SCREEN UNCONFIRMED POSITIVE
[2019-11-25 14:48] VITALS: BP 143/91
[2019-11-25] MEDS ORDERED: INSULIN LISPRO 100 UNIT/ML 3 ML VIAL SUBCUT SCH (16:00)
[2019-11-25] MEDS ORDERED: DICYCLOMINE HCL 20 MG TABLET ONE (17:37)
[2019-11-25] MEDS ORDERED: TRAZODONE HCL 50 MG TABLET PO SCH (22:00)
[2019-11-25] MEDS ORDERED: GABAPENTIN 300 MG CAPSULE PO SCH (22:00)
[2019-11-25] MEDS ORDERED: PROPRANOLOL HCL 20 MG TABLET PO SCH (22:00)
[2019-11-25] MEDS ORDERED: OXYBUTYNIN CHLORIDE 5 MG TABLET PO SCH (22:00)
[2019-11-25] MEDS ORDERED: (PENDING PHARMACY ID) (Trazodone Hcl [Trazodone Hcl] 200 MG) PO SCH (22:00)
[2019-11-25] MEDS ORDERED: FAMOTIDINE INJ/PF 20 MG/2 ML SDV IV SCH (22:00)
--- NOTE | 2019-11-26 07:38 | Left Against Medical Advice ---
Against Medical Advice Admission Date/Time: 11/25/19 13:32 Primary Care Provider: Date of Patient Emigration: 11/25/19 - Diagnosis: (1) Gastritis Is this a current diagnosis for this admission?: Yes (2) Jejunitis Is this a current diagnosis for this admission?: Yes (3) HTN (hypertension) Is this a current diagnosis for this admission?: Yes (4) Bipolar disorder Is this a current diagnosis for this admission?: Yes (5) Tobacco dependence Is this a current diagnosis for this admission?: Yes (6) Abdominal pain Is this a current diagnosis for this admission?: Yes (7) Nausea, vomiting, and diarrhea Is this a current diagnosis for this admission?: Yes (8) Diabetes type 2, uncontrolled Is this a current diagnosis for this admission?: Yes - Summary: Summary: Please see Admission and Progress Notes as well. MARGO MORALES is a 39 F, who LEFT AGAINST MEDICAL ADVICE. The Patient was admitted on 11/25/19 13:32. H&P: MARGO MORALES is a 39 year old female with a past medical history of HTN, uncontrolled DM, morbid obesity, seizure disorder, panic disorder, bipolar disorder, and tobacco dependence who presented to the emergency department with a complaint of n/v/d begining three days ago and epigastric pain begining yesterday which prompted her to seek care. She has not had any ep isodes of vomiting or diarrhea today, but does report continued abdominal discomfort. Evaluation in the ED reveals HTN but otherwise nml vital signs, mild leukocytosis (WBC 11.8), elevated bicarb on chemistry, nml urinalysis and abdominal CT suggesting enteritis vs ileus. Surgery was consulted; recommends bowel rest and hydration. She is referred to the hospitalist services for admission and management of the above stated complaints and findings. Course: The patient was admitted to the medical floor for gastritis and jejunitis. She was placed on a clear liquid diet and supported with IV fluids, antiemetics, Tylenol, Bentyl, and Toradol as needed for pain. Due to concern for possible developing ileus (and considering the patient's history of substance abuse) narcotic pain medications were avoided. UDS was positive for methadone (not prescribed) and patient had verbally stated multiple controlled substance medications as part of her home regiment. The [place] Controlled Substance Database was used to verify that the patient was last regularly prescribed controlled medications in June 2019. Surgery was consulted; appreciate Dr. Goss's recommendations for bowel rest and symptomatic management Shortly after arriving to the medical floor, the patient requested IV dilaudid for pain control. Nursing staff explained the importance of avoiding narcotics to prevent worsening ileus/partial obstruction and offered alternatives. The patient then elected to leave AGAINST MEDICAL ADVICE.
[2019-11-26] MEDS ORDERED: PANTOPRAZOLE SODIUM 20 MG TABLET.DR PO SCH (08:00)
[2019-11-26] MEDS ORDERED: (PENDING PHARMACY ID) (Lurasidone Hcl [Latuda] 80 MG) PO SCH (08:00)
[2019-11-26] MEDS ORDERED: (PENDING PHARMACY ID) (Esomeprazole Magnesium [Nexium] 20 MG) PO SCH (08:00)
[2019-11-26] MEDS ORDERED: LURASIDONE HCL 40 MG TABLET PO SCH (08:00)
[2019-11-26] MEDS ORDERED: FLUTICASONE NASAL SPRAY 50 MCG/SPRY 120 SPRAY/16 GM NAREB SCH (10:00)
[2019-11-26] MEDS ORDERED: NICOTINE 21 MG/24 HR PATCH.TD24 TD SCH (10:00)
== END 2019-11-25 20:25 | disposition left against medical advice (07) ==
LOC: ER 00:25 → EH 13:32 → 5 14:38
PROVIDERS: ADMIT Internal Medicine; ATTEND Internal Medicine
DX: K29.00 Acute gastritis without bleeding (principal); K52.9 Noninfective gastroenteritis and colitis, unspecified; I10 Essential (primary) hypertension; F31.9 Bipolar disorder, unspecified; F17.210 Nicotine dependence, cigarettes, uncomplicated; E11.65 Type 2 diabetes mellitus with hyperglycemia; R10.13 Epigastric pain; D72.829 Elevated white blood cell count, unspecified; F41.1 Generalized anxiety disorder; E66.01 Morbid (severe) obesity due to excess calories; F19.11 Other psychoactive substance abuse, in remission; Z90.49 Acquired absence of other specified parts of digestive tract; Z98.51 Tubal ligation status; Z82.49 Family history of ischemic heart disease and other diseases of the circulatory system; Z79.899 Other long term (current) drug therapy
CPT/HCPCS: 96376; 94640 ×2; 99285; 96361; 96374; 36415; 96375; 82962; 84703; 85025; 80053; 81001; 80307; 83036; 74177; G0378 ×2; J3490 ×3; J3010; J1885; J2270; J2405; J7030

== ENCOUNTER 2019-12-20 23:17 | Emergency (ER) | payer MEDICAID, OTHER ==
[2019-12-20 23:26] VITALS: BP 132/80
== END 2019-12-21 01:07 | disposition left against medical advice (07) ==
LOC: ER 23:17
DX: Z53.21 Procedure and treatment not carried out due to patient leaving prior to being seen by health care provider (principal)

== ENCOUNTER 2020-02-29 09:05 | Emergency (ER) | payer MEDICAID ==
[2020-02-29 10:04] LABS: ABSOLUTE BASOPHILS # (AUTO) 0.1 10^3/uL (0.0-0.2); ABSOLUTE EOSINOPHILS # (AUTO) 0.3 10^3/uL (0.0-0.6); ABSOLUTE LYMPHOCYTES (AUTO) 2.1 10^3/uL (0.5-4.7); ABSOLUTE MONOCYTES (AUTO) 0.9 10^3/uL (0.1-1.4); ABSOLUTE NEUT (AUTO) 9.2 10^3/uL (1.7-8.2); EOSINOPHILS % (AUTO) 2.4 % (0-6); HEMATOCRIT 45.7 % (36.0-47.0); HEMOGLOBIN 15.3 g/dL (12.0-15.5); LYMPHOCYTES % (AUTO) 16.3 % (13-45); MEAN CORPUSCULAR HEMOGLOBIN 28.9 pg (27.0-33.4); MEAN CORPUSCULAR HGB CONC 33.4 g/dL (32.0-36.0); MEAN CORPUSCULAR VOLUME 87 fl (80-97); MONOCYTES % (AUTO) 6.8 % (3-13); PLATELET COUNT 203 10^3/uL (150-450); RED BLOOD COUNT 5.28 10^6/uL (3.72-5.28); SEGMENTED NEUTROPHILS % (AUTO) 73.5 % (42-78); TOTAL CELLS COUNTED % (AUTO) 100 %; WHITE BLOOD COUNT 12.6 10^3/uL (4.0-10.5)
[2020-02-29 10:16] LABS: ALBUMIN 4.5 g/dL (3.5-5.0); ALKALINE PHOSPHATASE 120 U/L (38-126); ANION GAP 8 (5-19); ASPARTATE AMINO TRANSFERASE 35 U/L (14-36); BILIRUBIN,DIRECT 0.1 mg/dL (0.0-0.4); BILIRUBIN,TOTAL 0.5 mg/dL (0.2-1.3); BLOOD UREA NITROGEN 3 mg/dL (7-20); CALCIUM 9.8 mg/dL (8.4-10.2); CARBON DIOXIDE 30 mmol/L (22-30); CHLORIDE 99 mmol/L (98-107); GLUCOSE 170 mg/dL (75-110); POTASSIUM 3.8 mmol/L (3.6-5.0); TOTAL PROTEIN 8.1 g/dL (6.3-8.2)
[2020-02-29] MEDS ORDERED: NORMAL SALINE 1000 ML 1,000 ML IV ONE (11:32)
[2020-02-29] MEDS ORDERED: MORPHINE SULFATE 10 MG/ML INJ IV ONE (11:32)
[2020-02-29] MEDS ORDERED: ONDANSETRON HCL INJ/PF 4 MG/2 ML SDV IV ONE (11:33)
[2020-02-29] MEDS ORDERED: FAMOTIDINE INJ/PF 20 MG/2 ML SDV IV ONE (11:33)
--- NOTE | 2020-02-29 11:36 | ER Document Report ---
ED GI/ - General Chief Complaint: Abdominal Pain Stated Complaint: NAUSEA,VOMITING Time Seen by Provider: 02/29/20 10:25 Primary Care Provider: NATIVIDAD BERGMAN PA-C [Primary Care Provider] - Follow up as needed Notes: 39-year-old woman presents to the emergency department with a history of abdominal pain. States she was in the hospital approximately 3 months ago with evaluation. She followed up with GI medicine had upper endoscopy and colonoscopy were both performed the upper endoscopy was reportedly normal and a colonoscopy apparently showed some polyps which were removed. The patient has been compliant with her GI meds which include a PPI, and H2 jacqui, and Bentyl. She was told by the maori liaison adviser they feel that she has irritable bowel syndrome but she was also told that she may have a hiatal hernia. Patient states that her symptoms have been worsening and her symptoms increased last night. She has had vomiting and cramping abdominal pain. TRAVEL OUTSIDE OF THE [place] IN LAST 30 DAYS: No - Related Data Allergies/Adverse Reactions: haloperidol [From Haldol] Allergy (Unknown, Verified 12/20/19 23:24) haloperidol lactate [From Haldol] Allergy (Unknown, Verified 12/20/19 23:24) paliperidone [From Invega] Allergy (Unknown, Verified 12/20/19 23:24) hydroxyzine [From Vistaril] Allergy (Verified 12/20/19 23:24) Home Medications: "some diabetic things" Past Medical History - Social History Smoking Status: Current Some Day Smoker Family History: Reviewed & Not Pertinent Patient has homicidal ideation: No - Past Medical History Cardiac Medical History: Reports: Hx Hypertension Neurological Medical History: Reports: Hx Seizures Endocrine Medical History: Reports: Hx Diabetes Mellitus Type 2 Renal/ Medical History: Denies: Hx Peritoneal Dialysis Musculoskeletal Medical History: Reports Hx Arthritis Psychiatric Medical History: Reports: Hx Anxiety, Hx Bipolar Disorder, Hx Depression Past Surgical History: Reports: Hx Section, Hx Cholecystectomy, Hx Tubal Ligation - Immunizations Hx Diphtheria, Pertussis, Tetanus Vaccination: No Review of Systems - Review of Systems Notes: Constitutional: Negative for fever. HENT: Negative for sore throat. Eyes: Negative for visual changes. Cardiovascular: Negative for chest pain. Respiratory: Negative for shortness of breath. Gastrointestinal: + abdominal pain, +vomiting, no diarrhea. Genitourinary: Negative for dysuria. Musculoskeletal: Negative for back pain. Skin: Negative for rash. Neurological: Negative for headaches, weakness or numbness. 10 point ROS negative except as marked above and in HPI. Physical Exam - Vital signs Vitals: Resp Pulse Ox 13 93 02/29/20 09:28 02/29/20 09:28 - Notes Notes: PHYSICAL EXAMINATION: Physical Exam: General: Well-nourished well-developed 89-year-old woman market distress secondary to abdominal pain HEENT: NC/AT, pupils equal round and reactive to light, MM moist,nares clear, oropharynx clear, airway patent Neck: supple, no adenopathy, no masses. Good range of motion Lungs: clear, no wheezing, no rales no rhonchi CVS: Regular rate and rhythm no murmur gallop or rub Abdomen: Distally tender abdomen with + bowel sounds, no masses, no guarding and no rebound. Ext: No edema, clubbing or cyanosis. Neuro: Alert and responsive, moving all 4 extremities on command, cranial nerves intact, no focal findings Skin: Intact no open lesions, no rash PSYCH: Normal mood, normal affect. Course - Re-evaluation Re-evalutation: 02/29/20 13:54 Patient was given IV fluids, IV pain medication and H2 jacqui with some improvement of her symptoms. She states that she has Phenergan and Bentyl at home as well as an antacid medication. She has been given Carafate in the emergency department and have added a discharge prescription for Carafate at home. I have asked her to follow-up with her primary care and maori liaison adviser for further evaluation and treatment. - Vital Signs Vital signs: Temp Pulse Resp BP Pulse Ox 97.4 F 85 18 135/86 H 92 02/29/20 13:00 02/29/20 09:40 02/29/20 13:00 02/29/20 13:00 02/29/20 13:00 - Laboratory Result Diagrams: 02/29/20 09:30 02/29/20 09:30 Laboratory results interpreted by me: 02/29/20 02/29/20 02/29/20 09:30 09:30 09:34 WBC 12.6 H RDW 15.0 H Absolute Neuts (auto) 9.2 H Sodium 136.8 L BUN 3 L Glucose 170 H POC Glucose 149 H Urine Glucose (UA) 02/29/20 11:00 WBC RDW Absolute Neuts (auto) Sodium BUN Glucose POC Glucose Urine Glucose (UA) >=500 H - Diagnostic Test Radiology reviewed: Image reviewed, Reports reviewed - CT scan abdomen pelvis with IV contrast reveals no acute intra-abdominal abnormalities, patient has splenomegaly and hepatic-steatosis. Discharge - Discharge Clinical Impression: Gastritis Qualifiers: Gastritis type: unspecified gastritis Chronicity: unspecified Gastritis bleeding: without bleeding Qualified Code(s): K29.70 - Gastritis, unspecified, without bleeding Abdominal pain Qualifiers: Abdominal location: unspecified location Qualified Code(s): R10.9 - Unspecified abdominal pain Diabetes type 2, uncontrolled Qualifiers: Glycemic state: with hyperglycemia Qualified Code(s): E11.65 - Type 2 diabetes mellitus with hyperglycemia Obesity Qualifiers: Obesity type: unspecified obesity type Obesity classification: unspecified obesity classification Serious obesity comorbidity presence: unspecified whether serious comorbidity present Qualified Code(s): E66.9 - Obesity, unspecified Condition: Good Disposition: HOME, SELF-CARE Instructions: Abdominal Pain ([facility]), Antinausea Medication ([facility]) Additional Instructions: You were seen in the emergency department with continuation of the abdominal pain which you had in the past. Please take the medications as they were previously prescribed, begin the Carafate as prescribed today. Follow-up with your doctors and your maori liaison adviser as needed. If your symptoms are uncontrolled or if you have worsening condition you may return to the emergency department for further evaluation and treatment HOME CARE INSTRUCTIONS & INFORMATION: Thank you for choosing us for your medical needs. We hope you're satisfied with the care you received. After you leave, you must properly care for your problem and, at the same time, observe its progress. Any condition can change. Some illnesses can change rapidly over hours or days. If your condition worsens, return to the Emergency Department or see your physician promptly. ABOUT YOUR X-RAYS AND EKG'S: If you had an EKG or X-rays taken, they have been read by the Emergency Physician. The X-rays and EKG's will also be read by a Radiologist or Nuclear Logging Engineer within 24 hours. If discrepancies are noted, you will be notified by telephone. Please be certain the ED has a correct telephone number & address where you can be reached. Also, realize that some fractures or abnormalities do not show up on initial X-rays. If your symptoms continue, see your physician. ABOUT YOUR LABORATORY TEST: If you had laboratory tests, the results have been reviewed by the Emergency Physician. Some test results (for example cultures) may not be available for several days. You will be contacted if any test result shows you need additional treatment. Please be certain the ED has a correct telephone number and address where you can be reached. ABOUT YOUR MEDICATIONS: You will receive instructions on how to take your medicine on the prescription label you receive. Additional information may be provided by the Pharmacy. If you have questions afterwards, call the ED for clarification or further instructions. Some prescribed medications may cause drowsiness. Do not perform tasks such as driving a car or operating machinery without consulting your Pharmacist. If you feel you need a refill of pain medication, your condition will need re-evaluation. Please do not call for a refill of any medication. ABOUT YOUR SIGNATURE: Signature of this document acknowledges to followin. Understanding that you received emergency treatment and that you may be released before al medical problems are known or treated. Please be certain the ED has a correct phone number & address where you can be reached. 2. Acknowledgement that you will arrange for follow-up care as recommended. 3. Authorization for the Emergency Physician to provide information to your follow-up Physician in order to maximize your care. AT ANY TIME, IF YOUR SYMPTOMS CHANGE SIGNIFICANTLY OR WORSEN OR YOU DEVELOP NEW SYMPTOMS, RETURN TO THE EMERGENCY DEPARTMENT IMMEDIATELY FOR RE-EVALUATION. OUR GOAL IS TO PROVIDE EXCELLENT MEDICAL CARE! WE HOPE THAT WE HAVE MET YOUR EXPECTATIONS DURING YOUR EMERGENCY DEPARTMENT VISIT AND THAT YOU FEEL YOU HAVE RECEIVED EXCELLENT CARE! Prescriptions: Sucralfate [Carafate 1 gm Tablet] 1 gm PO TID #60 tablet Hydrocodone/Acetaminophen [[place] 5-325 mg Tablet] 1 tab PO Q6 PRN #10 tablet PRN Reason: Referrals: NATIVIDAD BERGMAN PA-C [Primary Care Provider] - Follow up as needed
[2020-02-29 11:54] LABS: APPEARANCE,URINE CLEAR; BILIRUBIN,URINE NEGATIVE (NEGATIVE); COLOR,URINE YELLOW; GLUCOSE, URINE >=500 mg/dL (NEGATIVE); KETONES,URINE NEGATIVE (NEGATIVE); PROTEIN,URINE NEGATIVE (NEGATIVE); URINE SPECIFIC GRAVITY 1.022; UROBILINOGEN,URINE NEGATIVE mg/dL (<2.0)
--- NOTE | 2020-02-29 12:47 | RADIOLOGY REPORT (SQ) ---
EXAM DESCRIPTION: CT ABD/PELVIS WITH IV ONLY IMAGES COMPLETED DATE/TIME: 02/29/2020 12:32 pm REASON FOR STUDY: Abdominal pain COMPARISON: CT of the abdomen and pelvis with contrast from 11/25/2019. TECHNIQUE: CT scan of the abdomen and pelvis performed using helical scanning technique with dynamic intravenous contrast injection. No oral contrast. Images reviewed with lung, soft tissue, and bone windows. Reconstructed coronal and sagittal MPR images reviewed. Delayed images for evaluation of the urinary system also acquired. All images stored on PACS. All CT scanners at this facility use dose modulation, iterative reconstruction, and/or weight based d osing when appropriate to reduce radiation dose to as low as reasonably achievable (ALARA). [facility]: Dose Right [facility]: CareDose [facility]: Dose Right [facility]: Teradose 4D [facility]: Apparent CONTRAST TYPE AND DOSE: 100 mL Omnipaque 350- low osmolar. RENAL FUNCTION: Creatinine 0.62 milligrams/deciliter. LIMITATIONS: None. FINDINGS: LOWER CHEST: No acute findings. LIVER: The relative hypoattenuation of the hepatic parenchyma compared to the splenic parenchyma on t he portal venous phase is suggestive of underlying hepatic steatosis. The portal veins are patent. SPLEEN: The spleen is enlarged and it measures 15.7 cm in length. There is a 14 mm splenule medial t o the spleen. PANCREAS: No acute gross abnormality of the pancreas. GALLBLADDER: The gallbladder is surgically absent. ADRENAL GLANDS: No mass or asymmetry. RIGHT KIDNEY AND URETER: No solid masses. No calcifications. No hydronephrosis or hydroureter. LEFT KIDNEY AND URETER: No solid masses. No calcifications. No hydronephrosis or hydroureter. AORTA AND VESSELS: No aneurysm of the abdominal aorta. RETROPERITONEUM: No retroperitoneal adenopathy, hemorrhage or mass. BOWEL AND PERITONEAL CAVITY: No bowel obstruction, bowel wall thickening or pericolonic/ perienteric inflammation. No mesenteric adenopathy, free intraperitoneal fluid or mesenteric/ omental inflammati on. APPENDIX: Normal. PELVIS: No abnormality of the uterus or adnexa that is apparent on CT. The urinary bladder is disten ded and normal in appearance. ABDOMINAL WALL: No abdominal wall mass or hernia. BONES: Limbus vertebra at L4. OTHER: No other finding. IMPRESSION: 1. No acute intra-abdominal abnormality. 2. Splenomegaly. 3. Hepatic steatosis. TECHNICAL DOCUMENTATION: JOB ID: [id number] Quality ID # [id number]: Final reports with documentation of one or more dose reduction techniques (e.g., Au tomated exposure control, adjustment of the mA and/or kV according to patient size, use of iterative reconstruction technique) 2010 [employer]- All Rights Reserved Reading location - IP/workstation name: [email or web address]-
[2020-02-29] MEDS ORDERED: HYDROMORPHONE HCL INJ/PF 2 MG/ML AMPULE IV ONE (12:57)
[2020-02-29] MEDS ORDERED: SUCRALFATE 1 GM TABLET PO ONE (13:38)
[2020-02-29 14:07] VITALS: BP 135/86
== END 2020-02-29 14:24 | disposition home or self-care (01) ==
LOC: ER 09:05
DX: K29.70 Gastritis, unspecified, without bleeding (principal); E66.9 Obesity, unspecified; R11.2 Nausea with vomiting, unspecified; E11.65 Type 2 diabetes mellitus with hyperglycemia; R16.1 Splenomegaly, not elsewhere classified; K76.0 Fatty (change of) liver, not elsewhere classified; I10 Essential (primary) hypertension; Z79.899 Other long term (current) drug therapy; Z88.8 Allergy status to other drugs, medicaments and biological substances; Z90.49 Acquired absence of other specified parts of digestive tract
CPT/HCPCS: 96374; 99284; 96361; 96375; 36415; 87040; 82962; 83605; 83690; 85025; 80053; 81001; 74177; J2270; J1170; J3490; J2405; J7030; S0028

== ENCOUNTER 2020-07-22 17:42 | Emergency (ER) | payer MEDICAID ==
[2020-07-22 18:01] VITALS: BP 126/72
[2020-07-22] MEDS ORDERED: MAG HYDROX/AL HYDROX/SIMETH SUSP 30 ML UDCUP PO ONE (18:17)
[2020-07-22] MEDS ORDERED: METOCLOPRAMIDE HCL ORAL SOLN 10 MG/10 ML UDCUP PO ONE (18:18)
[2020-07-22] MEDS ORDERED: LIDOCAINE 2% VISCOUS SOLN 15 ML UDCUP PO ONE (18:18)
[2020-07-22] MEDS ORDERED: HYDROCODONE/ACETAMINOPHEN 5-325 MG TABLET PO ONE (18:18)
--- NOTE | 2020-07-22 18:27 | ER Document Report ---
ED Medical Screen (RME) - General Chief Complaint: Abdominal Pain Stated Complaint: ABDOMINAL PAIN, SHOULDER PAIN Time Seen by Provider: 07/22/20 18:08 Primary Care Provider: NATIVIDAD BERGMAN PA-C [Primary Care Provider] - Follow up as needed TRAVEL OUTSIDE OF THE [place] IN LAST 30 DAYS: No - HPI Notes: 07/22/20 18:27 39-year-old female presents emergency room for complaints of epigastric and right upper quadrant abdominal pain that started 3 hours ago, reports and comes in waves, she has had some nausea and vomiting, reports she has some slight chest pain and shortness of breath, she is unsure if it is from the epigastric pain or she is actually feeling it. Denies any cardiac history. Patient also reports that she fell on her right shoulder couple days ago she is also having pain. Patient states she has had a couple episodes of epigastric abdominal pain in the past 6 months or so. She reports she did have a cholecystectomy done years ago, she does still have her appendix. Reports her last menstrual cycle was over a year ago, patient states she is not having any sexual intercourse with the opposite sex for risk of . Has not tried any [id number] medications for her symptoms. Worse with time, nothing makes better. Denies any history of gastritis. She did have a colonoscopy and endoscopy done within the last year, she believes her endoscopy was normal, she reports some polyps in her colon that were removed. I have greeted and performed a rapid initial assessment of this patient. A comprehensive ED assessment and evaluation of the patient, analysis of test results and completion of the medical decision making process will be conducted by additional ED providers. PHYSICAL EXAMINATION: GENERAL: Well-appearing, well-nourished and in no acute distress. HEAD: Atraumatic, normocephalic. EYES: Pupils equal round extraocular movements intact, conjunctiva are normal. NECK: Normal range of motion CV: s1, s2 regular LUNGS: No respiratory distress abd: Epigastric, right upper abdominal pain on palpation. No CVA tenderness appreciated bilaterally - Related Data Allergies/Adverse Reactions: haloperidol [From Haldol] Allergy (Unknown, Verified 07/22/20 18:07) haloperidol lactate [From Haldol] Allergy (Unknown, Verified 07/22/20 18:07) paliperidone [From Invega] Allergy (Unknown, Verified 07/22/20 18:07) hydroxyzine [From Vistaril] Allergy (Verified 07/22/20 18:07) Home Medications: neurotin, metformin, glipizide. Past Medical History - Past Medical History Cardiac Medical History: Reports: Hx Hypertension Neurological Medical History: Reports: Hx Seizures Endocrine Medical History: Reports: Hx Diabetes Mellitus Type 2 Renal/ Medical History: Denies: Hx Peritoneal Dialysis Musculoskeltal Medical History: Reports Hx Arthritis Psychiatric Medical History: Reports: Hx Anxiety, Hx Bipolar Disorder, Hx Depression Past Surgical History: Reports: Hx Section, Hx Cholecystectomy, Hx Tubal Ligation - Immunizations Hx Diphtheria, Pertussis, Tetanus Vaccination: No Physical Exam - Vital signs Vitals: Temp Pulse Resp BP Pulse Ox 98.3 F 88 16 126/72 H 95 07/22/20 17:59 07/22/20 17:59 07/22/20 17:59 07/22/20 17:59 07/22/20 17:59 Course - Vital Signs Vital signs: Temp Pulse Resp BP Pulse Ox 98.3 F 88 16 126/72 H 95 07/22/20 17:59 07/22/20 17:59 07/22/20 17:59 07/22/20 17:59 07/22/20 17:59 Doctor's Discharge - Discharge Referrals: NATIVIDAD BERGMAN PA-C [Primary Care Provider] - Follow up as needed
--- NOTE | 2020-07-22 19:07 | RADIOLOGY REPORT (SQ) ---
EXAM DESCRIPTION: CHEST SINGLE VIEW IMAGES COMPLETED DATE/TIME: 07/22/2020 6:54 pm REASON FOR STUDY: epigastric abd pain, chest pain COMPARISON: 01/16/2018 EXAM PARAMETERS: NUMBER OF VIEWS: One view. TECHNIQUE: Single frontal radiographic view of the chest acquired. RADIATION DOSE: NA LIMITATIONS: None. FINDINGS: LUNGS AND PLEURA: Patchy mildly prominent interstitial markings in the right lower lung z one may represent infiltrate versus edema. No pneumothorax or pleural effusion. MEDIASTINUM AND HILAR STRUCTURES: No masses. Contour normal. HEART AND VASCULAR STRUCTURES: Cardiomegaly. Mild prominence of the pulmonary vasculature suggest c ongestion. BONES: No acute findings. HARDWARE: None in the chest. OTHER: No other significant finding. IMPRESSION: 1. Cardiomegaly and mild pulmonary vascular congestion. 2. Patchy mild prominent interstitial markings in the right lower lung zone may represent infiltrate versus edema. TECHNICAL DOCUMENTATION: JOB ID: [id number] 2010 [employer]- All Rights Reserved Reading location - IP/workstation name: [email or web address]
[2020-07-22] MEDS ORDERED: ONDANSETRON 4 MG TAB.RAPDIS PO ONE (19:13)
--- NOTE | 2020-07-22 19:54 | RADIOLOGY REPORT (SQ) ---
EXAM DESCRIPTION: U/S ABDOMEN LIMITED W/O DOP IMAGES COMPLETED DATE/TIME: 07/22/2020 7:39 pm REASON FOR STUDY: RUQ/epigastric abd pain x 3 hours ago COMPARISON: None. TECHNIQUE: Dynamic and static grayscale images acquired of the abdomen and recorded on PACS. Additio nal selected color Doppler and spectral images recorded. LIMITATIONS: Examination is limited due to patient body habitus and overlying bowel gas. FINDINGS: PANCREAS: The pancreas is not visualized due to overlying bowel gas. LIVER: The liver measures 20.0 cm in length, hepatomegaly. Limited visualization due to overlying b owel gas. Fatty liver suggested. LIVER VASCULATURE: Normal directional flow of the main portal vein and hepatic veins. GALLBLADDER: Prior cholecystectomy. ULTRASOUND-DETECTED JUAREZ'S SIGN: Negative. INTRAHEPATIC DUCTS AND COMMON DUCT: CBD measures 6.0 mm in diameter, upper limits of normal. The int rahepatic ducts normal caliber. No filling defects. INFERIOR VENA CAVA: Normal flow. AORTA: The abdominal aorta is not visualized due to overlying bowel gas. RIGHT KIDNEY: The right kidney measures 11.5 cm in length, normal size. Limited visualization due t o overlying bowel gas. No hydronephrosis. PERITONEAL AND RIGHT PLEURAL SPACE: No ascites or effusions. OTHER: No other significant findings. IMPRESSION: 1. Examination is limited due to overlying bowel gas and the patient's body habitus. T he pancreas and abdominal aorta are obscured by overlying bowel gas. Limited visualization of the re maining organs. 2. Prior cholecystectomy. 3. Hepatomegaly. TECHNICAL DOCUMENTATION: JOB ID: [id number] 2010 [employer]- All Rights Reserved Reading location - IP/workstation name: [email or web address]
[2020-07-22 20:42] LABS: ABSOLUTE BASOPHILS # (AUTO) 0.1 10^3/uL (0.0-0.2); ABSOLUTE EOSINOPHILS # (AUTO) 0.4 10^3/uL (0.0-0.6); ABSOLUTE MONOCYTES (AUTO) 0.8 10^3/uL (0.1-1.4); ABSOLUTE NEUT (AUTO) 6.3 10^3/uL (1.7-8.2); BASOPHILS % (AUTO) 0.9 % (0-2); EOSINOPHILS % (AUTO) 3.8 % (0-6); HEMATOCRIT 43.1 % (36.0-47.0); HEMOGLOBIN 14.4 g/dL (12.0-15.5); LYMPHOCYTES % (AUTO) 28.1 % (13-45); MEAN CORPUSCULAR HEMOGLOBIN 28.1 pg (27.0-33.4); MEAN CORPUSCULAR HGB CONC 33.5 g/dL (32.0-36.0); MEAN CORPUSCULAR VOLUME 84 fl (80-97); MONOCYTES % (AUTO) 7.9 % (3-13); PLATELET COUNT 182 10^3/uL (150-450); RED BLOOD COUNT 5.13 10^6/uL (3.72-5.28); RED CELL DISTRIBUTION WIDTH 16.6 % (11.5-14.0); SEGMENTED NEUTROPHILS % (AUTO) 59.3 % (42-78); TOTAL CELLS COUNTED % (AUTO) 100 %; WHITE BLOOD COUNT 10.6 10^3/uL (4.0-10.5)
[2020-07-22 20:49] LABS: APPEARANCE,URINE CLEAR; BILIRUBIN,URINE NEGATIVE (NEGATIVE); COLOR,URINE YELLOW; GLUCOSE, URINE NEGATIVE (NEGATIVE); KETONES,URINE NEGATIVE (NEGATIVE); LEUKOCYTE ESTERASE,URINE NEGATIVE (NEGATIVE); NITRITE,URINE NEGATIVE (NEGATIVE); PROTEIN,URINE NEGATIVE (NEGATIVE); UROBILINOGEN,URINE NEGATIVE mg/dL (<2.0)
[2020-07-22 21:06] LABS: ALBUMIN 3.8 g/dL (3.5-5.0); ALKALINE PHOSPHATASE 122 U/L (38-126); ANION GAP 8 (5-19); ASPARTATE AMINO TRANSFERASE 32 U/L (14-36); BILIRUBIN,DIRECT 0.2 mg/dL (0.0-0.4); BILIRUBIN,TOTAL 0.3 mg/dL (0.2-1.3); BLOOD UREA NITROGEN 7 mg/dL (7-20); CALCIUM 9.3 mg/dL (8.4-10.2); CARBON DIOXIDE 27 mmol/L (22-30); CHLORIDE 103 mmol/L (98-107); GLUCOSE 126 mg/dL (75-110); POTASSIUM 4.1 mmol/L (3.6-5.0); TOTAL PROTEIN 7.1 g/dL (6.3-8.2)
--- NOTE | 2020-07-22 23:55 | RADIOLOGY REPORT (SQ) ---
RIGHT SHOULDER RADIOGRAPHS: 07/22/2020 10:54 PM CDT TECHNIQUE: AP internal/external rotation, Y views of the right shoulder were obtained. COMPARISON: None available HISTORY: 39-year old patient with right shoulder pain . FINDINGS: The visualized portions of the right hemithorax appear unremarkable. The right acromioclavicular joint is unremarkable. There are no findings to suggest an acute fracture of the right shoulder. The visualized portions of the right clavicle demonstrate no evidence of an acute fracture. The visualized soft tissues appear unremarkable. IMPRESSION: There are no findings to suggest an acute fracture of the right shoulder.
--- NOTE | 2020-07-23 07:28 | EKG REPORT ---
SEVERITY:- BORDERLINE ECG - SINUS RHYTHM BORDERLINE LEFT AXIS DEVIATION BORDERLINE T ABNORMALITIES, ANTERIOR LEADS : Confirmed by: Jesus Evangelista MD 23-Jul-2020 07:28:00
== END 2020-07-22 23:43 | disposition left against medical advice (07) ==
LOC: ER 17:42
DX: R10.13 Epigastric pain (principal); R10.11 Right upper quadrant pain; R11.2 Nausea with vomiting, unspecified; M25.511 Pain in right shoulder; X58.XXXA Exposure to other specified factors, initial encounter; R07.9 Chest pain, unspecified; R06.02 Shortness of breath; R16.0 Hepatomegaly, not elsewhere classified; I11.9 Hypertensive heart disease without heart failure; E11.9 Type 2 diabetes mellitus without complications; Z79.899 Other long term (current) drug therapy; Z79.84 Long term (current) use of oral hypoglycemic drugs; Z86.010 Personal history of colon polyps; Z90.49 Acquired absence of other specified parts of digestive tract; Z98.51 Tubal ligation status; Z88.8 Allergy status to other drugs, medicaments and biological substances; Z53.20 Procedure and treatment not carried out because of patient's decision for unspecified reasons
CPT/HCPCS: 36415; 71045; 76705; 80053; 81001; 81025; 83690; 84484; 85025; 93005; 93010; 99281